=== PATIENT | male | born 1965 | race African-American/Black ===

== ENCOUNTER 2017-04-17 20:45 | Inpatient (IN) | payer OTHER ==
[~2017-04-17] VITALS: Ht 185.4 cm; Wt 97.1 kg
[~2017-04-17 20:45] MED LIST: AMLO10TA4 PO; AMLO5TAB4 PO; CARV25TA PO; CLON0.1T PO; DIGO0.12 PO; ENAL20TA4 PO; FURO40TA4 PO; HYDR-2868 PO; ISOS20TA2 PO; SIMV10TA3 PO
[2017-04-17] MEDS ORDERED: fentaNYL PF VIAL 100 MCG/2 ML VIAL IV PRN (21:15)
[2017-04-17] MEDS ORDERED: ASPIRIN CHEWABLE 81 MG TABLET. PO ONE ×2 (21:30→23:00)
[2017-04-17 21:38] LABS: BASO % 1 % (0-3); EOS % 2 % (0-3); HEMATOCRIT 44.2 % (39.0-53.0); HEMOGLOBIN 14.7 g/dL (13.0-17.5); LYMPH # 1.3 x10^3/uL (1.0-4.8); LYMPH % 36 % (24-48); MEAN CORPUSCULAR HEMOGLOBIN 32 pg (25-35); MEAN CORPUSCULAR HGB CONC 33 g/dL (31-37); MEAN CORPUSCULAR VOLUME 96 fL (79-100); MONO % 12 % (0-9); NEUT % 49 % (31-73); PLATELET COUNT 155 x10^3/uL (140-400); RED BLOOD COUNT 4.59 x10^6/uL (4.30-5.70); RED CELL DISTRIBUTION WIDTH 16.5 % (11.5-14.5); WHITE BLOOD COUNT 3.7 x10^3/uL (4.0-11.0)
[2017-04-17 21:39] LABS: BARBITURATES NEG (NEG); BENZODIAZEPINES NEG (NEG); CANNABINOIDS NEG (NEG); COCAINE NEG (NEG); METHADONE NEG (NEG); OPIATES NEG (NEG); PHENCYCLIDINE NEG (NEG)
[2017-04-17 21:49] LABS: CALCIUM 8.3 mg/dL (8.5-10.1); CREATININE 2.4 mg/dL (0.7-1.3); GFR 34.6; POTASSIUM 3.1 mmol/L (3.5-5.1)
[2017-04-17 21:55] LABS: ALBUMIN 3.6 g/dL (3.4-5.0); DIRECT BILIRUBIN 0.1 mg/dL (0.0-0.2); TOTAL BILIRUBIN 0.4 mg/dL (0.2-1.0); TOTAL PROTEIN 7.4 g/dL (6.4-8.2)
[2017-04-17] MEDS ORDERED: ANTI-COAG MONITOR BY PHARMACY. MC PRN (22:15)
[2017-04-17] MEDS ORDERED: HEPARIN for IV BOLUS 10,000 UNIT/10 ML VIAL. IV PRN (22:15)
[2017-04-17] MEDS ORDERED: HEPARIN 25,000UTS/500ML PREMIX 500 ML IV PRN (22:15)
[2017-04-17] MEDS ORDERED: HEPARIN for IV BOLUS 10,000 UNIT/10 ML VIAL. IV ONE (22:30)
[2017-04-17 22:35] LABS: PROTHROMBIN TIME PATIENT 12.8 SEC (11.7-14.0)
[2017-04-17] MEDS: NITROGLYCERIN SUBLINGUAL 0.4 MG BOTTLE OF 25. SL PRN ×2 (22:39→22:50)
[2017-04-17] MEDS ORDERED: MORPHINE SULFATE 4 MG/ML DISP.SYRIN. IV PRN (22:45)
[2017-04-17] MEDS ORDERED: ONDANSETRON PF 4 MG/2 ML VIAL. IV PRN (22:45)
[2017-04-17] MEDS ORDERED: ACETAMINOPHEN 325 MG TABLET. PO PRN (22:45)
[2017-04-17] MEDS: IV NORMAL SALINE 1000ML BAG 1,000 ML IV SCH (22:47)
--- NOTE | 2017-04-17 22:58 | PHYS DOC ---
Past Medical History Past Medical History: CAD, CHF, High Cholesterol, Hypertension Additional Past Medical Histor: gout Past Surgical History: Other Additional Past Surgical Histo: "neck gland" Alcohol Use: Heavy Drug Use: None Adult General Chief Complaint Chief Complaint: CHEST PAIN HPI HPI Patient is a 51 year old gentleman with a history significant for hypertension , elevated troponin, elevated BNP, alcohol abuse, presents here today complaining of chest discomfort. Patient reports that his C was out and he was feeling hot so he drank several beers today to keep cool. Patient reports started developing chest pain and midepigastric discomfort. Patient has any diabetes liver longer kidney problems. Patient denies any surgeries. Patient denies any tobacco or drugs. Patient has any fevers shakes chills cough cold Raynaud's. Patient has any radiating pain. Patient says the pain of the discomfort in his chest. Patient reports it is not exertional. It occurred while he was resting. Patient has any melena or blood per rectum. Patient has any hematochezia. Patient denies any coffee-ground emesis. Patient reports that he was diagnosed with a heart attack in the past. Patient reports that he declined a cardiac catheterization at that time. Patient reports that the in medical therapy. Patient's ER workup was significant for an elevated troponin, elevated BNP, and an elevated lipase.. Patient's chest x-ray revealed a normal heart with no infiltrates or effusions. Interpreted by Dianna. EKG #1 revealed normal sinus rhythm with nonspecific ST-T wave abnormalities no evidence of STEMI. Comparing it to his EKG from April 30, 2016 there isn't any significant changes. EKG #2 revealed normal sinus rhythm with nonspecific ST-T wave abnormalities no evidence of STEMI. No significant changes from EKG from earlier today. Interpreted by Dianna. Patient's physical exam was significant for regular rate and rhythm. Lungs were clear without any wheezing rales or rhonchi. Abdomen was soft nontender no rebound or guarding. Mild midepigastric tenderness to palpation. Assessment and plan 1. Chest pain. Patient with what appears to be a non-STEMI. Patient hasn't had an elevated troponin in the past. His last visit to the hospital. It's unclear whether or not this is chronic her with her not this is new for him as it was just 1 visit. Patient's EKG does not show any STEMI. Patient be started on heparin protocol, patient be on aspirin, nitro paste, will be admitted to telemetry and will have Betzy assist with evaluation. Patient have serial troponins. Patient is currently chest pain-free. 2. Elevated troponin see above 3. Elevated BNP. Patient's clinically and hemodynamically stable. There is no evidence currently of acute CHF. Patient does not present with signs or symptoms consistent with pulmonary edema. Patient be monitored and evaluated by cardiology. 4. Elevated lipase. Patient is a heavy alcohol user. Patient's clinically hemodynamically stable. Patient lipase is elevated. Patient will be admitted to the hospital. Patient is tolerating by mouth's currently. I do not see a need to make him nothing by mouth at this time. Patient be managed with IV fluids and antiemetics as needed. Critical care time of 35 minutes were utilizing the management and treatment of this patient's abnormal labs. Patient has been diagnosed with non-STEMI, pancreatitis, evaluated for CHF. Alcohol intoxication. Review of Systems Review of Systems Constitutional: Denies fever or chills [] Eyes: Denies change in visual acuity, redness, or eye pain [] HENT: Denies nasal congestion or sore throat [] All other review systems are negative except as documented in the history of present illness portion. Current Medications Current Medications Current Medications Medications (Trade) Dose Ordered Sig/[facility] Start Time Stop Time Status Last Admin Dose Admin Aspirin (Children'S Aspirin) 324 mg 1X ONCE 04/17/17 23:00 04/17/17 23:01 Cancel Fentanyl Citrate (Fentanyl 2ml Vial) 25 mcg PRN Q15MIN PRN 04/17/17 21:15 04/18/17 21:14 04/17/17 22:38 25 MCG Heparin Sodium (Porcine) (Heparin Sodium) 2,700 unit PRN Q6HRS PRN 04/17/17 22:15 Heparin Sodium/ Dextrose 500 ml @ 0 mls/hr CONT PRN 04/17/17 22:15 04/17/17 22:32 20 MLS/HR Info (Anti-Coagulation Monitoring By Pharmacy) 1 each PRN DAILY PRN 04/17/17 22:15 Nitroglycerin (Nitro-Bid Oint) 1 inch 1X ONCE 04/17/17 23:00 04/17/17 23:01 Nitroglycerin (Nitrostat) 0.4 mg PRN Q5MIN PRN 04/17/17 21:15 04/18/17 21:14 04/17/17 22:39 0.4 MG Sodium Chloride 1,000 ml @ 1,000 mls/hr 1X ONCE 04/17/17 23:00 04/17/17 23:59 Allergies Allergies Allergies Coded Allergies Type Severity Reaction Last Updated Verified SILVER Inhibitors Allergy Severe Anaphylaxis 04/30/16 Yes lisinopril Allergy Severe Swelling 04/29/16 Yes Physical Exam Physical Exam Constitutional: Denies fever or chills [] Eyes: Denies change in visual acuity, redness, or eye pain [] HENT: Denies nasal congestion or sore throat [] All other review systems are negative except as documented in the history of present illness portion. Constitutional: Well developed, well nourished, no acute distress, non-toxic appearance. [] HENT: Normocephalic, atraumatic, bilateral external ears normal, oropharynx moist, no oral exudates, nose normal. [] Eyes: PERRLA, EOMI, conjunctiva normal, no discharge. [] Neck: Normal range of motion, no tenderness, supple, no stridor. [] Cardiovascular:Heart rate regular rhythm, Lungs & Thorax: Bilateral breath sounds clear to auscultation [] Abdomen: Bowel sounds normal, soft, no tenderness, no masses, no pulsatile masses. [] Skin: Warm, dry, no erythema, no rash. [] Back: No tenderness, no CVA tenderness. [] Extremities: No tenderness, no cyanosis, no clubbing, ROM intact, no edema. [] Neurologic: Alert and oriented X 3, normal motor function, normal sensory function, no focal deficits noted. [] Psychologic: Affect normal, judgement normal, mood normal. [] Current Patient Data Vital Signs Vital Signs Date Time Temp Pulse Resp B/P (MAP) Pulse Ox O2 Delivery O2 Flow Rate FiO2 04/17/17 22:39 98 189/114 04/17/17 20:45 98.2 22 98 Room Air 98.2 Lab Values Laboratory Tests Test 04/17/17 20:50 04/17/17 21:15 White Blood Count 3.7 x10^3/uL (4.0-11.0) L Red Blood Count 4.59 x10^6/uL (4.30-5.70) Hemoglobin 14.7 g/dL (13.0-17.5) Hematocrit 44.2 % (39.0-53.0) Mean Corpuscular Volume 96 fL (79-100) Mean Corpuscular Hemoglobin 32 pg (25-35) Mean Corpuscular Hemoglobin Concent 33 g/dL (31-37) Red Cell Distribution Width 16.5 % (11.5-14.5) H Platelet Count 155 x10^3/uL (140-400) Neutrophils (%) (Auto) 49 % (31-73) Lymphocytes (%) (Auto) 36 % (24-48) Monocytes (%) (Auto) 12 % (0-9) H Eosinophils (%) (Auto) 2 % (0-3) Basophils (%) (Auto) 1 % (0-3) Neutrophils # (Auto) 1.8 x10^3uL (1.8-7.7) Lymphocytes # (Auto) 1.3 x10^3/uL (1.0-4.8) Monocytes # (Auto) 0.5 x10^3/uL (0.0-1.1) Eosinophils # (Auto) 0.1 x10^3/uL (0.0-0.7) Basophils # (Auto) 0.0 x10^3/uL (0.0-0.2) Prothrombin Time 12.8 SEC (11.7-14.0) Prothrombin Time INR 1.0 (0.8-1.1) PTT 30 SEC (24-38) Sodium Level 145 mmol/L (136-145) Potassium Level 3.1 mmol/L (3.5-5.1) L Chloride Level 102 mmol/L (98-107) Carbon Dioxide Level 30 mmol/L (21-32) Anion Gap 13 (6-14) Blood Urea Nitrogen 24 mg/dL (8-26) Creatinine 2.4 mg/dL (0.7-1.3) H Estimated GFR (Cockcroft-Gault) 34.6 Glucose Level 138 mg/dL (70-99) H Calcium Level 8.3 mg/dL (8.5-10.1) L Total Bilirubin 0.4 mg/dL (0.2-1.0) Direct Bilirubin 0.1 mg/dL (0.0-0.2) Aspartate Amino Transferase (AST) 39 U/L (15-37) H Alanine Aminotransferase (ALT) 24 U/L (16-63) Alkaline Phosphatase 65 U/L (46-116) Troponin I Quantitative 0.201 ng/mL (0.000-0.055) LD-Fht-U-Type Natriuretic Peptide 1425 pg/mL (0-124) H Total Protein 7.4 g/dL (6.4-8.2) Albumin 3.6 g/dL (3.4-5.0) Lipase 626 U/L (73-393) H Urine Opiates Screen Neg (NEG) Urine Methadone Screen Neg (NEG) Urine Barbiturates Neg (NEG) Urine Phencyclidine Screen Neg (NEG) Urine Amphetamine/Methamphetamine Neg (NEG) Urine Benzodiazepines Screen Neg (NEG) Urine Cocaine Screen Neg (NEG) Urine Cannabinoids Screen Neg (NEG) Urine Ethyl Alcohol Pos (NEG) Laboratory Tests 04/17/17 20:50 Laboratory Tests 04/17/17 20:50 EKG EKG [] Radiology/Procedures Radiology/Procedures [] Course & Med Decision Making Course & Med Decision Making Pertinent Labs and Imaging studies reviewed. (See chart for details) [] Dragon Disclaimer Dragon Disclaimer This electronic medical record was generated, in whole or in part, using a voice recognition dictation system. Departure Departure Impression: Primary Impression: Chest pain Additional Impressions: Elevated troponin Hypokalemia Non-STEMI (non-ST elevated myocardial infarction) Unstable angina Pancreatitis Heart failure Kidney failure Hypertension Disposition: 09 ADMITTED INPATIENT Admitting Physician: Dennys Smith Condition: STABLE Referrals: UNKNOWN PCP NAME (PCP) Problem Qualifiers ALEKSANDR GILLILAND MD Apr 17, 2017 22:58
[2017-04-17] MEDS ORDERED: NITROGLYCERIN OINT 1 GM PACKET. TP ONE (23:00)
[2017-04-17] MEDS ORDERED: IV NORMAL SALINE 1000ML BAG 1,000 ML IV ONE (23:00)
[2017-04-18] VITALS (7 sets, daily range): BP systolic 117–183; BP diastolic 68–115
[2017-04-18] MEDS: hydrALAZINE 20 MG/ML VIAL. IVP PRN ×2 (00:52→08:03)
[2017-04-18] MEDS ORDERED: DIGO250T PO (02:19)
[2017-04-18] MEDS ORDERED: POTA20TA82 PO (02:19)
--- NOTE | 2017-04-18 03:51 | ACF ---
Admission Forms Criteria MYOCARDIAL INFARCTION Clinical Indications for Admission to Inpatient Care (Place 'X' for any and all applicable criteria): Admission is indicated for 1 or more of the following (1)(2)(3)(4): [X]I. Acute OK [ ]II. Contraindications and/or Inappropriate clinical situations for Observational Care in patients with Myocardial Infarction, when ANY ONE of the following is required: [ ]a) Patient with High risk of cardiac embolism (e.g, patients with previous cardiac embolism, LVEF < 40%, age >75 and patients with prosthetic valve) 18 [ ]b) Patient with Moderate risk including DM patient, CAD and patient aged 65-75 18 [ ]c) Patient with any change in cardiac biomarker especially troponin should be managed as high risk in an inpatient setting 19 [ ]d) Physician judgement irrespective of ECG and other diagnostic findings 20 [ ]III.General contraindications and/or Inappropriate clinical situations for Observational Care in patients with Myocardial Infarction, when ANY ONE of the following is required: [ ]a) Prediction of prolongation of LOS based on ANY ONE of the following may be considered as a contraindication for observational care 2, 3, 4, 5, 6, 7, 8, 9, 10, 11 [ ]i) Age > 65 yrs. [ ]ii) Patient arriving by ambulance [ ]iii) Patient with high acuity [ ]iv) Patient requiring vital sign monitoring [ ]v) Patient on IV medication [ ]b) Systolic blood pressures greater than or equal to 180mmHg 3,12 [ ]c) Patient with altered mental status including delirium and other alteration of consciousness, (3) [ ]d) Patient whose discharge disposition will be to a half-way home or rehabilitation home should not be managed in Emergency Department Observation Unit. CMS rule requires 3 days hospital stay before such placement. 3,13 [ ]e) Patient with failure to thrive due to broad array of etiologies 3 ,16,17 [ ]f) Inability to ambulate 3,14 Extended stay beyond goal length of stay may be needed for (1)(18)(20)(24)(25): [ ]a) Hemodynamic instability, persisting symptoms after intensive medical management, or recurring severe, prolonged symptoms [ ]b) Intravascular procedural complications such as acute vessel closure, stent thrombosis, stent malposition, or vessel dissection (26)(27)(28) [ ]c) Extravascular procedural complications such as retroperitoneal hematoma , pericardial effusion, or cardiac tamponade [ ]d) Entry site complications causing bleeding, hematoma or distal ischemia and requiring ongoing monitoring, surgical repair or surgical thrombectomy. Dangerous arrhythmia [ ]e) Complicated percutaneous coronary intervention (e.g., unsuccessful percutaneous coronary intervention or percutaneous coronary intervention of non- [place] vessel) [ ]f) Urgent or emergent surgery for complications of OK (e.g., ventricular rupture, valvular insufficiency) [ ]g) Surgical revascularization via coronary artery bypass graft [ ]h) Heart failure (e.g., pulmonary edema) [ ]i) Unstable pulmonary comorbidities, including COPD or pneumonia (31) [ ]j) Acute renal failure The original [employer] content created by [employer] [employer] has been revised. The portions of the content which have been revised are identified through the use of italic text or in bold, and [facility] has neither reviewed nor approved the modified material. All other unmodified content is copyright [facility] Please see references footnoted in the original [facility] edition 2016 Admission Criteria Met?: Yes KEMAR SERRANO Apr 18, 2017 03:51
[2017-04-18 05:15] LABS: BASO % 1 % (0-3); EOS % 2 % (0-3); HEMATOCRIT 42.4 % (39.0-53.0); HEMOGLOBIN 13.9 g/dL (13.0-17.5); LYMPH # 0.9 x10^3/uL (1.0-4.8); LYMPH % 22 % (24-48); MEAN CORPUSCULAR HEMOGLOBIN 32 pg (25-35); MEAN CORPUSCULAR HGB CONC 33 g/dL (31-37); MEAN CORPUSCULAR VOLUME 96 fL (79-100); MONO % 14 % (0-9); NEUT % 61 % (31-73); PLATELET COUNT 149 x10^3/uL (140-400); RED CELL DISTRIBUTION WIDTH 16.7 % (11.5-14.5); WHITE BLOOD COUNT 3.9 x10^3/uL (4.0-11.0)
[2017-04-18 06:02] LABS: ALBUMIN 3.4 g/dL (3.4-5.0); ALBUMIN/GLOBULIN RATIO 0.9 (1.0-1.7); CALCIUM 7.7 mg/dL (8.5-10.1); CREATININE 1.7 mg/dL (0.7-1.3); GFR 51.5; TOTAL BILIRUBIN 0.6 mg/dL (0.2-1.0)
[2017-04-18 06:09] LABS: CHOLESTEROL/HDL RATIO 1.9; POTASSIUM 2.8 mmol/L (3.5-5.1)
[2017-04-18] MEDS: IV NORMAL SALINE 1000ML BAG 1,000 ML IV SCH ×3 (06:39→18:00)
--- NOTE | 2017-04-18 06:47 | EKG ---
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
--- NOTE | 2017-04-18 06:48 | EKG ---
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
[2017-04-18] MEDS ORDERED: MAGNESIUM SULFATE 2GM 50 ML IV ONE (07:00)
[2017-04-18] MEDS: POTASSIUM CHLORIDE 10MEQ 100 ML IV SCH ×4 (07:51→13:01)
--- NOTE | 2017-04-18 08:06 | RAD ---
Portable chest, 04/17/2017: History: Chest pain The heart is mildly enlarged. The pulmonary vascularity is normal. No pulmonary infiltrates are seen. There is no evidence of pleural fluid. IMPRESSION: 1. Mild cardiomegaly. 2. No acute abnormality is detected.
--- NOTE | 2017-04-18 09:05 | PDOC2 ---
GI CONSULT Reason For Consult: Pancreatitis HPI: HPI: 51 y/o male admitted through the ER. Not feeling well for about 3 days, his electricity has been out at home. Reports some left-sided chest pain associated w/ SOA. Thinks precipitated by "all the meds" he takes. Had watery stools for a couple days and hasn't been eating much (again due to power being out). Currently some nausea. Denies vomiting, heartburn/reflux/indigestion. Occasionally has epigastric pain but has not had this recently. Denies hematochezia, melena. Denies weight loss. Colonoscopy a couple years ago ( unsure where performed) was reportedly normal, although he was prescribed some suppositories after. No previous EGD. No liver or pancreatic history. Tells me drinks two beers daily. Note HTN and tachycardia. Labs significant for lipase 626 and normal LFTs except for AST 39. BNP and troponin elevated, along w/ Cr. Urine + ethyl alcohol and potassium is low. No abd imaging. Cardiology eval is pending. PMH: PMH: cardiomyopathy, MIs, HTN, gout FH: Family History: Cancer (uncles had cancer, unsure type) Social History: Smoke: <1 pack per day ALCOHOL: other (2 beers daily) Drugs: None ROS: GEN: power has been out, sweats HEENT: Denies blurred vision, sore throat CV: +chest pain RESP: +shortness of air GI: Per HPI : Denies hematuria, dysuria ENDO: Denies weight changes NEURO: Denies confusion, dizziness MSK: Denies weakness, joint pain/swelling SKIN: Denies jaundice, pruritus Vitals: Vitals: Vital Signs Date Time Temp Pulse Resp B/P (MAP) Pulse Ox O2 Delivery O2 Flow Rate FiO2 04/18/17 08:03 103 180/108 04/18/17 08:00 Room Air 04/18/17 07:45 97.9 20 97 97.9 Labs: Labs: Laboratory Tests Test 04/17/17 20:50 04/17/17 21:15 04/18/17 04:35 White Blood Count 3.7 x10^3/uL (4.0-11.0) 3.9 x10^3/uL (4.0-11.0) Red Blood Count 4.59 x10^6/uL (4.30-5.70) 4.40 x10^6/uL (4.30-5.70) Hemoglobin 14.7 g/dL (13.0-17.5) 13.9 g/dL (13.0-17.5) Hematocrit 44.2 % (39.0-53.0) 42.4 % (39.0-53.0) Mean Corpuscular Volume 96 fL (79-100) 96 fL (79-100) Mean Corpuscular Hemoglobin 32 pg (25-35) 32 pg (25-35) Mean Corpuscular Hemoglobin Concent 33 g/dL (31-37) 33 g/dL (31-37) Red Cell Distribution Width 16.5 % (11.5-14.5) 16.7 % (11.5-14.5) Platelet Count 155 x10^3/uL (140-400) 149 x10^3/uL (140-400) Neutrophils (%) (Auto) 49 % (31-73) 61 % (31-73) Lymphocytes (%) (Auto) 36 % (24-48) 22 % (24-48) Monocytes (%) (Auto) 12 % (0-9) 14 % (0-9) Eosinophils (%) (Auto) 2 % (0-3) 2 % (0-3) Basophils (%) (Auto) 1 % (0-3) 1 % (0-3) Neutrophils # (Auto) 1.8 x10^3uL (1.8-7.7) 2.4 x10^3uL (1.8-7.7) Lymphocytes # (Auto) 1.3 x10^3/uL (1.0-4.8) 0.9 x10^3/uL (1.0-4.8) Monocytes # (Auto) 0.5 x10^3/uL (0.0-1.1) 0.6 x10^3/uL (0.0-1.1) Eosinophils # (Auto) 0.1 x10^3/uL (0.0-0.7) 0.1 x10^3/uL (0.0-0.7) Basophils # (Auto) 0.0 x10^3/uL (0.0-0.2) 0.0 x10^3/uL (0.0-0.2) Prothrombin Time 12.8 SEC (11.7-14.0) Prothromb Time International Ratio 1.0 (0.8-1.1) Activated Partial Thromboplast Time 30 SEC (24-38) Sodium Level 145 mmol/L (136-145) 143 mmol/L (136-145) Potassium Level 3.1 mmol/L (3.5-5.1) 2.8 mmol/L (3.5-5.1) Chloride Level 102 mmol/L (98-107) 102 mmol/L (98-107) Carbon Dioxide Level 30 mmol/L (21-32) 25 mmol/L (21-32) Anion Gap 13 (6-14) 16 (6-14) Blood Urea Nitrogen 24 mg/dL (8-26) 21 mg/dL (8-26) Creatinine 2.4 mg/dL (0.7-1.3) 1.7 mg/dL (0.7-1.3) Estimated GFR (Cockcroft-Gault) 34.6 51.5 Glucose Level 138 mg/dL (70-99) 82 mg/dL (70-99) Calcium Level 8.3 mg/dL (8.5-10.1) 7.7 mg/dL (8.5-10.1) Total Bilirubin 0.4 mg/dL (0.2-1.0) 0.6 mg/dL (0.2-1.0) Direct Bilirubin 0.1 mg/dL (0.0-0.2) Aspartate Amino Transf (AST/SGOT) 39 U/L (15-37) 33 U/L (15-37) Alanine Aminotransferase (ALT/SGPT) 24 U/L (16-63) 22 U/L (16-63) Alkaline Phosphatase 65 U/L (46-116) 59 U/L (46-116) Troponin I Quantitative 0.201 ng/mL (0.000-0.055) 0.278 ng/mL (0.000-0.055) BI-Myi-A-Type Natriuretic Peptide 1425 pg/mL (0-124) Total Protein 7.4 g/dL (6.4-8.2) 7.0 g/dL (6.4-8.2) Albumin 3.6 g/dL (3.4-5.0) 3.4 g/dL (3.4-5.0) Lipase 626 U/L (73-393) Urine Opiates Screen Neg (NEG) Urine Methadone Screen Neg (NEG) Urine Barbiturates Neg (NEG) Urine Phencyclidine Screen Neg (NEG) Urine Amphetamine/Methamphetamine Neg (NEG) Urine Benzodiazepines Screen Neg (NEG) Urine Cocaine Screen Neg (NEG) Urine Cannabinoids Screen Neg (NEG) Urine Ethyl Alcohol Pos (NEG) Heparin Anti-Xa Act, Unfractionated 0.19 IU/mL (0.30-0.70) BUN/Creatinine Ratio 12 (6-20) Magnesium Level 1.7 mg/dL (1.8-2.4) Albumin/Globulin Ratio 0.9 (1.0-1.7) Triglycerides Level 52 mg/dL (0-150) Cholesterol Level 214 mg/dL (0-200) LDL Cholesterol, Calculated 92 mg/dL (0-100) VLDL Cholesterol, Calculated 10 mg/dL (0-40) Non-HDL Cholesterol Calculated 102 mg/dL (0-129) HDL Cholesterol 112 mg/dL (40-60) Cholesterol/HDL Ratio 1.9 Thyroid Stimulating Hormone (TSH) 0.596 uIU/mL (0.358-3.74) Allergies: Coded Allergies: SILVER Inhibitors (Verified Allergy, Severe, Anaphylaxis, 04/30/16) lisinopril (Verified Allergy, Severe, Swelling, 04/29/16) oral swelling Medications: Current Medications Medications (Trade) Dose Ordered Sig/Marisol Route PRN Reason Start Time Stop Time Status Last Admin Dose Admin Aspirin (Children'S Aspirin) 324 mg 1X ONCE PO 04/17/17 21:30 04/17/17 21:31 DC 04/17/17 21:21 Nitroglycerin (Nitrostat) 0.4 mg PRN Q5MIN PRN SL CP RATING > 1/10 04/17/17 21:15 04/18/17 21:14 04/17/17 22:50 Fentanyl Citrate (Fentanyl 2ml Vial) 25 mcg PRN Q15MIN PRN IV PAIN GREATER THAN 3/10 04/17/17 21:15 04/18/17 21:14 04/17/17 22:38 Heparin Sodium (Porcine) (Heparin Sodium) 4,000 unit 1X ONCE IV 04/17/17 22:30 04/17/17 22:31 DC 04/17/17 22:28 Heparin Sodium/ Dextrose 500 ml @ 0 mls/hr CONT PRN IV SEE I/O RECORD 04/17/17 22:15 04/17/17 22:32 Heparin Sodium (Porcine) (Heparin Sodium) 2,700 unit PRN Q6HRS PRN IV FOR UFH LEVEL LESS THAN 0.2 04/17/17 22:15 04/18/17 06:25 Info (Anti-Coagulation Monitoring By Pharmacy) 1 each PRN DAILY PRN MC SEE COMMENTS 04/17/17 22:15 04/18/17 00:45 Nitroglycerin (Nitro-Bid Oint) 1 inch 1X ONCE TP 04/17/17 23:00 04/17/17 23:01 DC 04/17/17 23:02 Morphine Sulfate 4 mg PRN Q2HR PRN IV SEVERE PAIN 04/17/17 22:45 04/18/17 22:44 04/18/17 01:02 Sodium Chloride 1,000 ml @ 125 mls/hr Q8H IV 04/17/17 22:39 04/18/17 22:38 04/17/17 22:47 Hydralazine HCl (Apresoline) 10 mg PRN Q4HRS PRN IVP ELEVATED BP, SEE COMMENTS 04/18/17 00:45 04/18/17 08:03 Magnesium Sulfate/ Dextrose 50 ml @ 25 mls/hr 1X ONCE IV 04/18/17 07:00 04/18/17 08:59 04/18/17 07:41 Potassium Chloride 100 ml @ 100 mls/hr Q1H IV 04/18/17 07:00 04/18/17 10:59 04/18/17 07:51 Imaging: Imaging: CXR 04/17/17 IMPRESSION: 1. Mild cardiomegaly. 2. No acute abnormality is detected. PE: GEN: NAD HEENT: Atraumatic, PERRL LUNGS: decreased anteriorly HEART: tachycardic ABD: NABS, S/ND/NT EXTREMITY: No edema SKIN: No rashes, no jaundice NEURO/PSYCH: A & O 3 A/P: A/P: Left-sided chest pain, SOA -HTN, tachycardia -elevated troponin and BNP, h/o cardiomyopathy Hypokalemia, hypomagnesemia, elevated Cr -per primary Mildly elevated lipase -no abd imaging -denies abd pain ?alcohol abuse -AST mildly elevated, urine +ethyl alcohol Decreased appetite, diarrhea -not eating much x 3 days, in part due to lack of electricity at home -watery stools CRC screen -colonoscopy a couple years ago, doesn't recall significant findings -- Symptoms not typical of pancreatitis, although suspect he drinks more than he says he does. Proceed w/ cardiology eval. Abd imaging (CT/US) would be helpful at some point, will review w/ Dr. Floyd. KARUNA SEXTON Apr 18, 2017 09:05
[2017-04-18] MEDS: MULTIVIT INFUSN,ADULT 4,VIT K 10 ML, FOLIC ACID 1 MG, THIAMINE 100 MG in IV DEXTROSE 5 ... IV SCH (09:48)
[2017-04-18] MEDS: NITROGLYCERIN SUBLINGUAL 0.4 MG BOTTLE OF 25. SL PRN (09:51)
[2017-04-18] MEDS ORDERED: ONDANSETRON PF 4 MG/2 ML VIAL. IV PRN (10:00)
[2017-04-18] MEDS ORDERED: DOCUSATE SODIUM 100 MG CAPSULE. PO PRN (10:00)
[2017-04-18] MEDS ORDERED: ACETAMINOPHEN 325 MG TABLET. PO PRN (10:00)
[2017-04-18] MEDS ORDERED: hydrALAZINE 20 MG/ML VIAL. IVP PRN (10:00)
[2017-04-18] MEDS: POTASSIUM CHLORIDE 20 MEQ TABLET.ER. PO SCH (11:36)
[2017-04-18] MEDS: hydrALAZINE 25 MG TABLET PO SCH ×3 (11:46→20:07)
[2017-04-18] MEDS: FUROSEMIDE 40 MG TABLET. PO SCH (11:47)
[2017-04-18] MEDS: amLODIPine BESYLATE 10 MG TABLET PO SCH (11:47)
[2017-04-18] MEDS: CARVEDILOL 12.5 MG TABLET. PO SCH ×2 (11:47→18:11)
--- NOTE | 2017-04-18 11:56 | PDOC2 ---
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 Reports of nonradiating left chest close to mid axillary line describing it ass sharp shooting. He does have some nausea at times but no complains of any palpitations. He has been drinking beer daily but denies heavy ingestion. Continue tobacco and no recreational drug use. He failed to follow up in our office from his last admission. He also has been feeling weak and sometimes SOA with exertion but none significant from his baseline. He works at a [employer] without much heavy lifting and has been tolerating this but stopped and wont tell me reason why he stopped working. Verbalized compliance with his medications. Presently denies any discomfort. He is known for NICM with baseline NYHA 2. PAST MEDICAL HISTORY Cardiovascular: CHF (NICM), HTN, Hyperlipidemia, Valve insufficiency Pulmonary: COPD CENTRAL NERVOUS SYSTEM: Other (No pertinent history) GI: GERD Heme/Onc: No pertinent hx Hepatobiliary: No pertinent hx Psych: No pertinent hx, Other (alcoholism) Musculoskeletal: Osteoarthritis Rheumatologic: Gout Infectious disease: No pertinent hx ENT: No pertinent hx Renal/: Chronic renal insuff (CKD 3), Other (hypokalemia) Endocrine: No pertinent hx Dermatology: No pertinent hx PAST SURGICAL HISTORY Past Surgical History: No pertinent history FAMILY HISTORY Family History noncontributory to CV SOCIAL HISTORY Smoke: <1 pack per day ALCOHOL: heavy Drugs: None Lives: with Family CURRENT MEDICATIONS CURRENT MEDICATIONS Current Medications Medications (Trade) Dose Ordered Sig/Marisol Route PRN Reason Start Time Stop Time Status Last Admin Dose Admin Aspirin (Children'S Aspirin) 324 mg 1X ONCE PO 04/17/17 21:30 04/17/17 21:31 DC 04/17/17 21:21 Nitroglycerin (Nitrostat) 0.4 mg PRN Q5MIN PRN SL CP RATING > 1/10 04/17/17 21:15 04/18/17 21:14 04/18/17 09:51 Fentanyl Citrate (Fentanyl 2ml Vial) 25 mcg PRN Q15MIN PRN IV PAIN GREATER THAN 3/10 04/17/17 21:15 04/18/17 21:14 04/17/17 22:38 Heparin Sodium (Porcine) (Heparin Sodium) 4,000 unit 1X ONCE IV 04/17/17 22:30 04/17/17 22:31 DC 04/17/17 22:28 Heparin Sodium/ Dextrose 500 ml @ 0 mls/hr CONT PRN IV SEE I/O RECORD 04/17/17 22:15 04/17/17 22:32 Heparin Sodium (Porcine) (Heparin Sodium) 2,700 unit PRN Q6HRS PRN IV FOR UFH LEVEL LESS THAN 0.2 04/17/17 22:15 04/18/17 06:25 Info (Anti-Coagulation Monitoring By Pharmacy) 1 each PRN DAILY PRN MC SEE COMMENTS 04/17/17 22:15 04/18/17 00:45 Nitroglycerin (Nitro-Bid Oint) 1 inch 1X ONCE TP 04/17/17 23:00 04/17/17 23:01 DC 04/17/17 23:02 Ondansetron HCl (Zofran) 4 mg PRN Q8HRS PRN IV NAUSEA/VOMITING 04/17/17 22:45 04/18/17 09:57 DC 04/18/17 09:23 Morphine Sulfate 4 mg PRN Q2HR PRN IV SEVERE PAIN 04/17/17 22:45 04/18/17 22:44 04/18/17 01:02 Sodium Chloride 1,000 ml @ 125 mls/hr Q8H IV 04/17/17 22:39 04/18/17 22:38 04/17/17 22:47 Hydralazine HCl (Apresoline) 10 mg PRN Q4HRS PRN IVP ELEVATED BP, SEE COMMENTS 04/18/17 00:45 04/18/17 08:03 Multivitamins 10 ml/Folic Acid 1 mg/Thiamine HCl 100 mg/Dextrose/ Sodium Chloride 1,011.1 ml @ 100 mls/ hr DAILY IV 04/18/17 09:00 04/22/17 19:07 04/18/17 09:48 Magnesium Sulfate/ Dextrose 50 ml @ 25 mls/hr 1X ONCE IV 04/18/17 07:00 04/18/17 08:59 DC 04/18/17 07:41 Potassium Chloride 100 ml @ 100 mls/hr Q1H IV 04/18/17 07:00 04/18/17 10:59 DC 04/18/17 09:23 ALLERGIES ALLERGIES: Coded Allergies: SILVER Inhibitors (Verified Allergy, Severe, Anaphylaxis, 04/30/16) lisinopril (Verified Allergy, Severe, Swelling, 04/29/16) oral swelling ROS Review of System 14 point ROS evaluated with pertinent positives noted per HPI PHYSICAL EXAM General: Alert, Oriented X3, Cooperative, No acute distress HEENT: Atraumatic, Mucous membr. moist/pink Lungs: Clear to auscultation, Normal air movement Heart: Regular rate (SR/ST), Normal S1, Normal S2, Other (S4; 3/6 systolic murmur diffuse) Extremities: No cyanosis, No edema Skin: No breakdown, No significant lesion Neuro: Normal speech, Sensation intact Psych/Mental Status: Mental status NL, Mood NL MUSCULOSKELETAL: Osteoarthritic changes both hands VITALS VITALS Vital Signs Date Time Temp Pulse Resp B/P (MAP) Pulse Ox O2 Delivery O2 Flow Rate FiO2 04/18/17 09:51 103 167/88 04/18/17 08:00 Room Air 04/18/17 07:45 97.9 20 97 97.9 LABS Lab: Laboratory Tests Test 04/17/17 20:50 04/17/17 21:15 04/18/17 04:35 White Blood Count 3.7 x10^3/uL (4.0-11.0) 3.9 x10^3/uL (4.0-11.0) Red Blood Count 4.59 x10^6/uL (4.30-5.70) 4.40 x10^6/uL (4.30-5.70) Hemoglobin 14.7 g/dL (13.0-17.5) 13.9 g/dL (13.0-17.5) Hematocrit 44.2 % (39.0-53.0) 42.4 % (39.0-53.0) Mean Corpuscular Volume 96 fL (79-100) 96 fL (79-100) Mean Corpuscular Hemoglobin 32 pg (25-35) 32 pg (25-35) Mean Corpuscular Hemoglobin Concent 33 g/dL (31-37) 33 g/dL (31-37) Red Cell Distribution Width 16.5 % (11.5-14.5) 16.7 % (11.5-14.5) Platelet Count 155 x10^3/uL (140-400) 149 x10^3/uL (140-400) Neutrophils (%) (Auto) 49 % (31-73) 61 % (31-73) Lymphocytes (%) (Auto) 36 % (24-48) 22 % (24-48) Monocytes (%) (Auto) 12 % (0-9) 14 % (0-9) Eosinophils (%) (Auto) 2 % (0-3) 2 % (0-3) Basophils (%) (Auto) 1 % (0-3) 1 % (0-3) Neutrophils # (Auto) 1.8 x10^3uL (1.8-7.7) 2.4 x10^3uL (1.8-7.7) Lymphocytes # (Auto) 1.3 x10^3/uL (1.0-4.8) 0.9 x10^3/uL (1.0-4.8) Monocytes # (Auto) 0.5 x10^3/uL (0.0-1.1) 0.6 x10^3/uL (0.0-1.1) Eosinophils # (Auto) 0.1 x10^3/uL (0.0-0.7) 0.1 x10^3/uL (0.0-0.7) Basophils # (Auto) 0.0 x10^3/uL (0.0-0.2) 0.0 x10^3/uL (0.0-0.2) Prothrombin Time 12.8 SEC (11.7-14.0) Prothromb Time International Ratio 1.0 (0.8-1.1) Activated Partial Thromboplast Time 30 SEC (24-38) Sodium Level 145 mmol/L (136-145) 143 mmol/L (136-145) Potassium Level 3.1 mmol/L (3.5-5.1) 2.8 mmol/L (3.5-5.1) Chloride Level 102 mmol/L (98-107) 102 mmol/L (98-107) Carbon Dioxide Level 30 mmol/L (21-32) 25 mmol/L (21-32) Anion Gap 13 (6-14) 16 (6-14) Blood Urea Nitrogen 24 mg/dL (8-26) 21 mg/dL (8-26) Creatinine 2.4 mg/dL (0.7-1.3) 1.7 mg/dL (0.7-1.3) Estimated GFR (Cockcroft-Gault) 34.6 51.5 Glucose Level 138 mg/dL (70-99) 82 mg/dL (70-99) Calcium Level 8.3 mg/dL (8.5-10.1) 7.7 mg/dL (8.5-10.1) Total Bilirubin 0.4 mg/dL (0.2-1.0) 0.6 mg/dL (0.2-1.0) Direct Bilirubin 0.1 mg/dL (0.0-0.2) Aspartate Amino Transf (AST/SGOT) 39 U/L (15-37) 33 U/L (15-37) Alanine Aminotransferase (ALT/SGPT) 24 U/L (16-63) 22 U/L (16-63) Alkaline Phosphatase 65 U/L (46-116) 59 U/L (46-116) Troponin I Quantitative 0.201 ng/mL (0.000-0.055) 0.278 ng/mL (0.000-0.055) GN-Gny-A-Type Natriuretic Peptide 1425 pg/mL (0-124) Total Protein 7.4 g/dL (6.4-8.2) 7.0 g/dL (6.4-8.2) Albumin 3.6 g/dL (3.4-5.0) 3.4 g/dL (3.4-5.0) Lipase 626 U/L (73-393) Urine Opiates Screen Neg (NEG) Urine Methadone Screen Neg (NEG) Urine Barbiturates Neg (NEG) Urine Phencyclidine Screen Neg (NEG) Urine Amphetamine/Methamphetamine Neg (NEG) Urine Benzodiazepines Screen Neg (NEG) Urine Cocaine Screen Neg (NEG) Urine Cannabinoids Screen Neg (NEG) Urine Ethyl Alcohol Pos (NEG) Heparin Anti-Xa Act, Unfractionated 0.19 IU/mL (0.30-0.70) BUN/Creatinine Ratio 12 (6-20) Magnesium Level 1.7 mg/dL (1.8-2.4) Albumin/Globulin Ratio 0.9 (1.0-1.7) Triglycerides Level 52 mg/dL (0-150) Cholesterol Level 214 mg/dL (0-200) LDL Cholesterol, Calculated 92 mg/dL (0-100) VLDL Cholesterol, Calculated 10 mg/dL (0-40) Non-HDL Cholesterol Calculated 102 mg/dL (0-129) HDL Cholesterol 112 mg/dL (40-60) Cholesterol/HDL Ratio 1.9 Thyroid Stimulating Hormone (TSH) 0.596 uIU/mL (0.358-3.74) ECHOCARDIOGRAM ECHOCARDIOGRAM <Conclusion> Left ventricle systolic function is severely impaired. The Ejection Fraction is 25%. There is severe global hypokinesis of the left ventricle. The lateral and inferolateral hall are severely hypokinetic to akinetic. Doppler and Color Flow revealed moderate aortic regurgitation. Doppler and Color Flow revealed moderate mitral regurgitation. Doppler and Color Flow revealed moderate tricuspid regurgitation. There is moderate pulmonary hypertension. The PA pressure was estimated at 55 mmHg. Doppler and Color Flow revealed mild pulmonic valvular regurgitation. DATE: 05/01/16 1140 STRESS TEST STRESS TEST Conclusion 1. No evidence of stress induced EKG changes (baseline high lateral wall q waves and diffuse TWI) 2. No significant reversible ischemia noted but appearance of perfusion study suggestive of non-ischemic cardiomyopathy 3. Severe LV dysfunction. EF 31% 4. Moderate to high risk study given LV dysfunction. DATE: 05/01/16 1145 ASSESSMENT/PLAN ASSESSMENT/PLAN 1. Atypical CP: currently CP free. Suspect GI 2. Elevated troponin: Underlying CKD. Peaked at 0.2 within his baseline from last admission with recent MPI no reversible defect. EKG SR no changes by comparison. 3. Continued Alcoholism: elevated lipase 4. Tobaccoism 5. NICM: last EF 25% unable to obtain lifevest the last time due to lack of health insurance. Compensated. NYHA 2 6. Noncompliance 7. HTN: controlled 8. HLP: controlled 9. JOAN on CKD3: Low K and Mg 10. Valvular insufficiency Recommendations 1. TTE today. Further recommendations after TTE results. 2. Continue with secondary prevention. Allergic to ACEi. 3. DC heparin. Lovenox x1. 4. Await GI workup 5. Encourage appointment compliance 6. Lifestyle modification. 7. Maintain K and Mg close to 4.0 and 2.0 respectively. Problems: KATRAPATI,JENARO S MD 04/18/17 2158: CARDIAC CONSULT ALLERGIES ALLERGIES: Coded Allergies: SILVER Inhibitors (Verified Allergy, Severe, Anaphylaxis, 04/30/16) lisinopril (Verified Allergy, Severe, Swelling, 04/29/16) oral swelling ASSESSMENT/PLAN ASSESSMENT/PLAN Pt. seen and examined. AGree with above PATIENT SERVICE SPECIALIST note. 51 y.o man with atypical chest pain, 3rd admission now with elevated troponin, joan and multiple CV risk factors. Normal cardiac exam. Etiology of troponin most likely HTN but given risk factors, will rule out CAD DIscussed with patient and , agrees to proceed with cath. Will follow. Problems: ZARA MUJICA APRN Apr 18, 2017 11:56 JENARO EUCEDA MD Apr 18, 2017 21:58
[2017-04-18] MEDS: ISOSORBIDE MONONITRATE 20 MG TABLET PO SCH (13:02)
--- NOTE | 2017-04-18 13:10 | PDOC1 ---
History and Physical Date of Admission Date of Admission 04/17/17 Identification/Chief Complaint Chief Complaint chest pain Problems: Source Source: Chart review, Patient History of Present Illness History of Present Illness 51yo M, heavy drinker, known non ischemia cardiomyopathy with EF 25% no ICD, came for chest pain x1d. He was here 04/2016 for chest pain, was found CHF, no Cath done. He said he felt left side chest pain yesterday when walking, with nausea, no vomiting, mild sob, no diaphoresis, pain feels like sharp, radiating to left arm , 9/10, also + tenderness. denies fever, chills, abd pain. + cough with smoking. he is not compliant with meds. drinks 2 beers daily. in ER ,was found troponin 0.2, lipase 600, on heparin drip overnight, now pain is 7/10. Past Medical History Cardiovascular: CHF (NICM), HTN, Hyperlipidemia, Valve insufficiency Pulmonary: COPD CENTRAL NERVOUS SYSTEM: Other (No pertinent history) GI: GERD Heme/Onc: No pertinent hx Hepatobiliary: No pertinent hx Psych: No pertinent hx, Other (alcoholism) Rheumatologic: Gout Infectious disease: No pertinent hx ENT: No pertinent hx Renal/: Chronic renal insuff (CKD 3), Other (hypokalemia) Endocrine: No pertinent hx Dermatology: No pertinent hx Past Surgical History Past Surgical History: No pertinent history Family History Family History: Heart Disease Social History Smoke: <1 pack per day ALCOHOL: heavy Drugs: None Current Problem List Problem List Problems Medical Problems: (1) Chest pain Status: Acute (2) Heart failure Status: Acute (3) Hypertension Status: Acute (4) Hypokalemia Status: Acute (5) Kidney failure Status: Acute Current Medications Current Medications Current Medications Medications (Trade) Dose Ordered Sig/Marisol Start Time Stop Time Status Last Admin Dose Admin Acetaminophen (Tylenol) 650 mg PRN Q6HRS PRN 04/18/17 10:00 Amlodipine Besylate (Norvasc) 10 mg DAILY 04/18/17 11:00 04/18/17 11:47 10 MG Aspirin (Children'S Aspirin) 324 mg 1X ONCE 04/17/17 23:00 04/17/17 23:01 Cancel Aspirin (Ecotrin) 81 mg [id number] 04/19/17 08:00 Carvedilol (Coreg) 25 mg BIDWMEALS 04/18/17 11:00 04/18/17 11:47 25 MG Docusate Sodium (Colace) 100 mg PRN DAILY PRN 04/18/17 10:00 Enoxaparin Sodium (Lovenox 100mg Syringe) 90 mg 1X ONCE 04/18/17 12:15 04/18/17 12:16 DC Fentanyl Citrate (Fentanyl 2ml Vial) 25 mcg PRN Q15MIN PRN 04/17/17 21:15 04/18/17 21:14 04/17/17 22:38 25 MCG Furosemide (Lasix) 40 mg DAILY 04/18/17 11:00 04/18/17 11:47 40 MG Heparin Sodium (Porcine) (Heparin Sodium) 2,700 unit PRN Q6HRS PRN 04/17/17 22:15 04/18/17 06:25 2,700 UNIT Heparin Sodium/ Dextrose 500 ml @ 0 mls/hr CONT PRN 04/17/17 22:15 04/18/17 11:58 DC 04/17/17 22:32 20 MLS/HR Hydralazine HCl (Apresoline) 10 mg PRN Q4HRS PRN 04/18/17 10:00 Cancel Info (Anti-Coagulation Monitoring By Pharmacy) 1 each PRN DAILY PRN 04/17/17 22:15 04/18/17 00:45 1 EACH Isosorbide Mononitrate (Ismo) 40 mg DAILY 04/18/17 10:30 Magnesium Sulfate/ Dextrose 50 ml @ 25 mls/hr 1X ONCE 04/18/17 07:00 04/18/17 08:59 DC 04/18/17 07:41 25 MLS/HR Morphine Sulfate 2 mg PRN Q2HR PRN 04/18/17 10:00 Multivitamins 10 ml/Folic Acid 1 mg/Thiamine HCl 100 mg/Dextrose/ Sodium Chloride 1,011.1 ml @ 100 mls/ hr DAILY 04/18/17 09:00 04/22/17 19:07 04/18/17 09:48 100 MLS/HR Nitroglycerin (Nitro-Bid Oint) 1 inch 1X ONCE 04/17/17 23:00 04/17/17 23:01 DC 04/17/17 23:02 1 INCH Nitroglycerin (Nitrostat) 0.4 mg PRN Q5MIN PRN 04/17/17 21:15 04/18/17 21:14 04/18/17 09:51 0.4 MG Ondansetron HCl (Zofran) 4 mg PRN Q6HRS PRN 04/18/17 10:00 Potassium Chloride (Klor-Con) 20 meq DAILYWBKFT 04/18/17 12:00 Simvastatin (Zocor) 10 mg QHS 04/18/17 21:00 Sodium Chloride 1,000 ml @ 125 mls/hr Q8H 04/17/17 22:39 04/18/17 22:38 04/17/17 22:47 125 MLS/HR Tramadol HCl (Ultram) 50 mg PRN Q6HRS PRN 04/18/17 10:00 Allergies Allergies Allergies Coded Allergies Type Severity Reaction Last Updated Verified SILVER Inhibitors Allergy Severe Anaphylaxis 04/30/16 Yes lisinopril Allergy Severe Swelling 04/29/16 Yes ROS Review of System CONSTITUTIONAL: No fever or chills EYES: No recent changes SKIN: No rash or itching CARDIOVASCULAR: No chest pain, syncope, palpitations, or edema RESPIRATORY: No SOB or cough GASTROINTESTINAL: No nausea, vomiting or abdominal pain NEUROLOGICAL: No headaches or weakness ENDOCRINE: No cold or heat intolerance GENITOURINARY: No urgency or frequency of urination MUSCULOSKELETAL: No back pain or joint pain LYMPHATICS: No enlarged lymph nodes PSYCHIATRIC: No anxiety or depression Physical Exam Physical Exam GEN.: No apparent distress. Alert and oriented. HEENT: Head is normocephalic, atraumatic NECK: Supple. left chest wall tenderness. LUNGS: Clear to auscultation. HEART: RRR, S1, S2 present. Peripheral pulses intact ABDOMEN: Soft, nontender. Positive bowel sounds. EXTREMITIES: Without any cyanosis. NEUROLOGIC: Normal speech, normal tone PSYCHIATRIC: Normal affect, normal mood. SKIN: No ulcerations Vitals Vitals Vital Signs Date Time Temp Pulse Resp B/P (MAP) Pulse Ox O2 Delivery O2 Flow Rate FiO2 04/18/17 11:47 104 176/91 04/18/17 11:00 98.2 20 95 Room Air 98.2 Labs Labs Laboratory Tests Test 04/17/17 20:50 04/17/17 21:15 04/18/17 04:35 04/18/17 10:45 White Blood Count 3.7 x10^3/uL (4.0-11.0) 3.9 x10^3/uL (4.0-11.0) Red Blood Count 4.59 x10^6/uL (4.30-5.70) 4.40 x10^6/uL (4.30-5.70) Hemoglobin 14.7 g/dL (13.0-17.5) 13.9 g/dL (13.0-17.5) Hematocrit 44.2 % (39.0-53.0) 42.4 % (39.0-53.0) Mean Corpuscular Volume 96 fL (79-100) 96 fL (79-100) Mean Corpuscular Hemoglobin 32 pg (25-35) 32 pg (25-35) Mean Corpuscular Hemoglobin Concent 33 g/dL (31-37) 33 g/dL (31-37) Red Cell Distribution Width 16.5 % (11.5-14.5) 16.7 % (11.5-14.5) Platelet Count 155 x10^3/uL (140-400) 149 x10^3/uL (140-400) Neutrophils (%) (Auto) 49 % (31-73) 61 % (31-73) Lymphocytes (%) (Auto) 36 % (24-48) 22 % (24-48) Monocytes (%) (Auto) 12 % (0-9) 14 % (0-9) Eosinophils (%) (Auto) 2 % (0-3) 2 % (0-3) Basophils (%) (Auto) 1 % (0-3) 1 % (0-3) Neutrophils # (Auto) 1.8 x10^3uL (1.8-7.7) 2.4 x10^3uL (1.8-7.7) Lymphocytes # (Auto) 1.3 x10^3/uL (1.0-4.8) 0.9 x10^3/uL (1.0-4.8) Monocytes # (Auto) 0.5 x10^3/uL (0.0-1.1) 0.6 x10^3/uL (0.0-1.1) Eosinophils # (Auto) 0.1 x10^3/uL (0.0-0.7) 0.1 x10^3/uL (0.0-0.7) Basophils # (Auto) 0.0 x10^3/uL (0.0-0.2) 0.0 x10^3/uL (0.0-0.2) Prothrombin Time 12.8 SEC (11.7-14.0) Prothromb Time International Ratio 1.0 (0.8-1.1) Activated Partial Thromboplast Time 30 SEC (24-38) Sodium Level 145 mmol/L (136-145) 143 mmol/L (136-145) Potassium Level 3.1 mmol/L (3.5-5.1) 2.8 mmol/L (3.5-5.1) Chloride Level 102 mmol/L (98-107) 102 mmol/L (98-107) Carbon Dioxide Level 30 mmol/L (21-32) 25 mmol/L (21-32) Anion Gap 13 (6-14) 16 (6-14) Blood Urea Nitrogen 24 mg/dL (8-26) 21 mg/dL (8-26) Creatinine 2.4 mg/dL (0.7-1.3) 1.7 mg/dL (0.7-1.3) Estimated GFR (Cockcroft-Gault) 34.6 51.5 Glucose Level 138 mg/dL (70-99) 82 mg/dL (70-99) Calcium Level 8.3 mg/dL (8.5-10.1) 7.7 mg/dL (8.5-10.1) Total Bilirubin 0.4 mg/dL (0.2-1.0) 0.6 mg/dL (0.2-1.0) Direct Bilirubin 0.1 mg/dL (0.0-0.2) Aspartate Amino Transf (AST/SGOT) 39 U/L (15-37) 33 U/L (15-37) Alanine Aminotransferase (ALT/SGPT) 24 U/L (16-63) 22 U/L (16-63) Alkaline Phosphatase 65 U/L (46-116) 59 U/L (46-116) Troponin I Quantitative 0.201 ng/mL (0.000-0.055) 0.278 ng/mL (0.000-0.055) 0.266 ng/mL (0.000-0.055) HV-Gma-D-Type Natriuretic Peptide 1425 pg/mL (0-124) Total Protein 7.4 g/dL (6.4-8.2) 7.0 g/dL (6.4-8.2) Albumin 3.6 g/dL (3.4-5.0) 3.4 g/dL (3.4-5.0) Lipase 626 U/L (73-393) Urine Opiates Screen Neg (NEG) Urine Methadone Screen Neg (NEG) Urine Barbiturates Neg (NEG) Urine Phencyclidine Screen Neg (NEG) Urine Amphetamine/Methamphetamine Neg (NEG) Urine Benzodiazepines Screen Neg (NEG) Urine Cocaine Screen Neg (NEG) Urine Cannabinoids Screen Neg (NEG) Urine Ethyl Alcohol Pos (NEG) Heparin Anti-Xa Act, Unfractionated 0.19 IU/mL (0.30-0.70) 0.62 IU/mL (0.30-0.70) BUN/Creatinine Ratio 12 (6-20) Magnesium Level 1.7 mg/dL (1.8-2.4) Albumin/Globulin Ratio 0.9 (1.0-1.7) Triglycerides Level 52 mg/dL (0-150) Cholesterol Level 214 mg/dL (0-200) LDL Cholesterol, Calculated 92 mg/dL (0-100) VLDL Cholesterol, Calculated 10 mg/dL (0-40) Non-HDL Cholesterol Calculated 102 mg/dL (0-129) HDL Cholesterol 112 mg/dL (40-60) Cholesterol/HDL Ratio 1.9 Thyroid Stimulating Hormone (TSH) 0.596 uIU/mL (0.358-3.74) Laboratory Tests Test 04/17/17 20:50 04/17/17 21:15 04/18/17 04:35 04/18/17 10:45 White Blood Count 3.7 x10^3/uL (4.0-11.0) 3.9 x10^3/uL (4.0-11.0) Red Blood Count 4.59 x10^6/uL (4.30-5.70) 4.40 x10^6/uL (4.30-5.70) Hemoglobin 14.7 g/dL (13.0-17.5) 13.9 g/dL (13.0-17.5) Hematocrit 44.2 % (39.0-53.0) 42.4 % (39.0-53.0) Mean Corpuscular Volume 96 fL (79-100) 96 fL (79-100) Mean Corpuscular Hemoglobin 32 pg (25-35) 32 pg (25-35) Mean Corpuscular Hemoglobin Concent 33 g/dL (31-37) 33 g/dL (31-37) Red Cell Distribution Width 16.5 % (11.5-14.5) 16.7 % (11.5-14.5) Platelet Count 155 x10^3/uL (140-400) 149 x10^3/uL (140-400) Neutrophils (%) (Auto) 49 % (31-73) 61 % (31-73) Lymphocytes (%) (Auto) 36 % (24-48) 22 % (24-48) Monocytes (%) (Auto) 12 % (0-9) 14 % (0-9) Eosinophils (%) (Auto) 2 % (0-3) 2 % (0-3) Basophils (%) (Auto) 1 % (0-3) 1 % (0-3) Neutrophils # (Auto) 1.8 x10^3uL (1.8-7.7) 2.4 x10^3uL (1.8-7.7) Lymphocytes # (Auto) 1.3 x10^3/uL (1.0-4.8) 0.9 x10^3/uL (1.0-4.8) Monocytes # (Auto) 0.5 x10^3/uL (0.0-1.1) 0.6 x10^3/uL (0.0-1.1) Eosinophils # (Auto) 0.1 x10^3/uL (0.0-0.7) 0.1 x10^3/uL (0.0-0.7) Basophils # (Auto) 0.0 x10^3/uL (0.0-0.2) 0.0 x10^3/uL (0.0-0.2) Prothrombin Time 12.8 SEC (11.7-14.0) Prothromb Time International Ratio 1.0 (0.8-1.1) Activated Partial Thromboplast Time 30 SEC (24-38) Sodium Level 145 mmol/L (136-145) 143 mmol/L (136-145) Potassium Level 3.1 mmol/L (3.5-5.1) 2.8 mmol/L (3.5-5.1) Chloride Level 102 mmol/L (98-107) 102 mmol/L (98-107) Carbon Dioxide Level 30 mmol/L (21-32) 25 mmol/L (21-32) Anion Gap 13 (6-14) 16 (6-14) Blood Urea Nitrogen 24 mg/dL (8-26) 21 mg/dL (8-26) Creatinine 2.4 mg/dL (0.7-1.3) 1.7 mg/dL (0.7-1.3) Estimated GFR (Cockcroft-Gault) 34.6 51.5 Glucose Level 138 mg/dL (70-99) 82 mg/dL (70-99) Calcium Level 8.3 mg/dL (8.5-10.1) 7.7 mg/dL (8.5-10.1) Total Bilirubin 0.4 mg/dL (0.2-1.0) 0.6 mg/dL (0.2-1.0) Direct Bilirubin 0.1 mg/dL (0.0-0.2) Aspartate Amino Transf (AST/SGOT) 39 U/L (15-37) 33 U/L (15-37) Alanine Aminotransferase (ALT/SGPT) 24 U/L (16-63) 22 U/L (16-63) Alkaline Phosphatase 65 U/L (46-116) 59 U/L (46-116) Troponin I Quantitative 0.201 ng/mL (0.000-0.055) 0.278 ng/mL (0.000-0.055) 0.266 ng/mL (0.000-0.055) RX-Xca-Q-Type Natriuretic Peptide 1425 pg/mL (0-124) Total Protein 7.4 g/dL (6.4-8.2) 7.0 g/dL (6.4-8.2) Albumin 3.6 g/dL (3.4-5.0) 3.4 g/dL (3.4-5.0) Lipase 626 U/L (73-393) Urine Opiates Screen Neg (NEG) Urine Methadone Screen Neg (NEG) Urine Barbiturates Neg (NEG) Urine Phencyclidine Screen Neg (NEG) Urine Amphetamine/Methamphetamine Neg (NEG) Urine Benzodiazepines Screen Neg (NEG) Urine Cocaine Screen Neg (NEG) Urine Cannabinoids Screen Neg (NEG) Urine Ethyl Alcohol Pos (NEG) Heparin Anti-Xa Act, Unfractionated 0.19 IU/mL (0.30-0.70) 0.62 IU/mL (0.30-0.70) BUN/Creatinine Ratio 12 (6-20) Magnesium Level 1.7 mg/dL (1.8-2.4) Albumin/Globulin Ratio 0.9 (1.0-1.7) Triglycerides Level 52 mg/dL (0-150) Cholesterol Level 214 mg/dL (0-200) LDL Cholesterol, Calculated 92 mg/dL (0-100) VLDL Cholesterol, Calculated 10 mg/dL (0-40) Non-HDL Cholesterol Calculated 102 mg/dL (0-129) HDL Cholesterol 112 mg/dL (40-60) Cholesterol/HDL Ratio 1.9 Thyroid Stimulating Hormone (TSH) 0.596 uIU/mL (0.358-3.74) VTE Prophylaxis Ordered VTE Prophylaxis Devices: No VTE Pharmacological Prophylaxi: Yes Assessment/Plan Assessment/Plan chest pain, muscular skeletal pain vs. unstable angina elevated troponin known non ischemia cardiomyopathy with EF 25%, no ICD, compensated now moderate MR, AR, TR, PHTN HTN TOBaccoism alcoholism non compliance hld tammy on ckd 3, vasomotor hypokalemia hypomagnesemia elevated lipase, 2/2 mild alcoholic pancreatitis vs. nausea plan: card consult, TTE fu with gi, abd US, cycle lipase cont some home meds dc heparin drip as per card labs tmr replMag KRISTIAN Perla CHUNMEI MD Apr 18, 2017 13:10
[2017-04-18] MEDS: MORPHINE SULFATE 2 MG/ML DISP.SYRIN. IV PRN ×2 (13:12→20:08)
--- NOTE | 2017-04-18 15:27 | CARD ---
APPROVED REPORT EXAM: Two-dimensional and M-mode echocardiogram with Doppler and color Doppler. Other Information Quality : Average Rhythm : NSR INDICATION Cardiomyopathy Elevated troponin level 2D DIMENSIONS Left Atrium(2D)4.2 (1.6-4.0cm)IVSd1.6 (0.7-1.1cm) Aortic Root(2D)3.0 (2.0-3.7cm)LVDd6.7 (3.9-5.9cm) LVOT Diameter2.4 (1.8-2.4cm)PWd1.6 (0.7-1.1cm) LVDs5.8 (2.5-4.0cm)FS (%) 12.8 % SV61.8 mlLVEF(%)26.8 (>50%) Aortic Valve AoV Peak Wero.183.4cm/sAoV VTI28.3cm AO Peak GR.13.5mmHgLVOT VTI 16.82cm AO Mean GR.7mmHgAI P 1/2 [id number] Mitral Valve MV E Ziwrfdvx17.8cm/sMV E Peak Gr.2mmHg MV DECEL [id number] A Kxtsazoo06.2cm/s MV [id number]/A Ratio1.2 MVA (PHT)3.79cm2 TDI Lateral E' P. V5.53cm/sMedial E' P. V7.01cm/s E/Lateral E'14.1E/Medial E'11.1 Tricuspid Valve TR P. Epsjoiud196lx/sRAP [id number] TR Peak Gr.[id number] LEFT VENTRICLE The Left Ventricle is severely dilated. There is moderate concentric left ventricular hypertrophy. Le ft ventricle systolic function is moderately impaired. The Ejection Fraction is 35%. There is global hypokinesis of the left ventricle. Tissue Doppler imaging reveals moderate left ventricular diastolic dysfunction. RIGHT VENTRICLE The right ventricle is normal size. The right ventricular systolic function is normal. ATRIA The left atrium is borderline dilated. The right atrium size is normal. The interatrial septum is int act with no evidence for an atrial septal defect or patent foramen ovale as noted on 2-D or Doppler i maging. AORTIC VALVE The aortic valve is mildly calcified. The aortic valve is trileaflet. Doppler and Color Flow revealed mild aortic regurgitation. There is no significant aortic valvular stenosis. MITRAL VALVE The mitral valve is normal in structure. There is no mitral valve stenosis. Doppler and Color Flow re vealed mild mitral regurgitation. TRICUSPID VALVE The tricuspid valve is normal in structure and function. Doppler and Color Flow revealed mild tricusp id regurgitation. The PA pressure was estimated at 33 mmHg. There is no tricuspid valve stenosis. PULMONIC VALVE The pulmonic valve is not well visualized. Doppler and Color Flow revealed trace pulmonic valvular re gurgitation. There is no pulmonic valvular stenosis. GREAT VESSELS The aortic root is normal in size. The ascending aorta is normal in size. Pulmonary veins not recorde d. The IVC is normal in size and collapses >50% with inspiration. PERICARDIAL EFFUSION There is no evidence of significant pericardial effusion. Critical Notification Critical Value: No <Conclusion> Left ventricle systolic function is moderately impaired. The Ejection Fraction is 35%. Mild aortic regurgitation. Mild mitral regurgitation. Mild tricuspid regurgitation. The PA pressure was estimated at 33 mmHg. There is no evidence of significant pericardial effusion.
[2017-04-18] MEDS ORDERED: HEPARIN 25,000UTS/500ML PREMIX 500 ML IV PRN ×2 (18:00)
[2017-04-18] MEDS: SIMVASTATIN 10 MG TABLET PO SCH (20:07)
[2017-04-18] MEDS: traMADol 50 MG TABLET PO PRN (23:27)
[2017-04-19] VITALS (12 sets, daily range): BP systolic 136–154; BP diastolic 86–108
[2017-04-19 04:33] LABS: BASO % 1 % (0-3); EOS % 2 % (0-3); HEMATOCRIT 38.8 % (39.0-53.0); HEMOGLOBIN 13.2 g/dL (13.0-17.5); LYMPH # 1.2 x10^3/uL (1.0-4.8); LYMPH % 32 % (24-48); MEAN CORPUSCULAR HEMOGLOBIN 32 pg (25-35); MEAN CORPUSCULAR HGB CONC 34 g/dL (31-37); MEAN CORPUSCULAR VOLUME 95 fL (79-100); MONO % 13 % (0-9); NEUT % 52 % (31-73); PLATELET COUNT 142 x10^3/uL (140-400); RED BLOOD COUNT 4.09 x10^6/uL (4.30-5.70); RED CELL DISTRIBUTION WIDTH 16.9 % (11.5-14.5); WHITE BLOOD COUNT 3.8 x10^3/uL (4.0-11.0)
[2017-04-19 04:41] LABS: CALCIUM 8.2 mg/dL (8.5-10.1); CREATININE 1.9 mg/dL (0.7-1.3); GFR 45.3; POTASSIUM 3.1 mmol/L (3.5-5.1)
[2017-04-19 04:44] LABS: MAGNESIUM 1.8 mg/dL (1.8-2.4)
[2017-04-19] MEDS: IV NORMAL SALINE 1000ML BAG 1,000 ML IV SCH ×2 (07:20→20:40)
[2017-04-19] MEDS ORDERED: POTASSIUM CHLORIDE 20 MEQ TABLET.ER. PO ONE (08:30)
[2017-04-19] MEDS ORDERED: LIDOCAINE 2% 20 ML VIAL. ONE (08:40)
--- NOTE | 2017-04-19 08:48 | PDOC ---
PROGRESS NOTES Chief Complaint Chief Complaint chest pain, muscular skeletal pain vs. unstable angina elevated troponin known non ischemia cardiomyopathy with EF 25%, no ICD, compensated now moderate MR, AR, TR, PHTN HTN TOBaccoism alcoholism non compliance hld tammy on ckd 3, vasomotor hypokalemia hypomagnesemia elevated lipase, 2/2 mild alcoholic pancreatitis vs. nausea History of Present Illness History of Present Illness About to have LHC GEts defensive when we talk about his etoh drinking Claims he is complaint with his home meds and gets a little bit irritated when we talk about it PLAN: Await [facility] results Possible home later or sampson pending [facility] results Vitals Vitals Vital Signs Date Time Temp Pulse Resp B/P (MAP) Pulse Ox O2 Delivery O2 Flow Rate FiO2 04/19/17 07:00 98.2 86 18 147/100 (116) 97 Room Air 98.2 Physical Exam General: Alert, Oriented X3, Cooperative, No acute distress Heart: Regular rate (SR/ST), Normal S1, Normal S2, Other (S4; 3/6 systolic murmur diffuse) Extremities: No cyanosis, No edema Skin: No breakdown, No significant lesion Labs LABS Laboratory Tests Test 04/18/17 10:45 04/18/17 16:58 04/19/17 03:49 Heparin Anti-Xa Act, Unfractionated 0.62 IU/mL (0.30-0.70) 0.48 IU/mL (0.30-0.70) 0.48 IU/mL (0.30-0.70) Troponin I Quantitative 0.266 ng/mL (0.000-0.055) White Blood Count 3.8 x10^3/uL (4.0-11.0) Red Blood Count 4.09 x10^6/uL (4.30-5.70) Hemoglobin 13.2 g/dL (13.0-17.5) Hematocrit 38.8 % (39.0-53.0) Mean Corpuscular Volume 95 fL (79-100) Mean Corpuscular Hemoglobin 32 pg (25-35) Mean Corpuscular Hemoglobin Concent 34 g/dL (31-37) Red Cell Distribution Width 16.9 % (11.5-14.5) Platelet Count 142 x10^3/uL (140-400) Neutrophils (%) (Auto) 52 % (31-73) Lymphocytes (%) (Auto) 32 % (24-48) Monocytes (%) (Auto) 13 % (0-9) Eosinophils (%) (Auto) 2 % (0-3) Basophils (%) (Auto) 1 % (0-3) Neutrophils # (Auto) 2.0 x10^3uL (1.8-7.7) Lymphocytes # (Auto) 1.2 x10^3/uL (1.0-4.8) Monocytes # (Auto) 0.5 x10^3/uL (0.0-1.1) Eosinophils # (Auto) 0.1 x10^3/uL (0.0-0.7) Basophils # (Auto) 0.0 x10^3/uL (0.0-0.2) Sodium Level 139 mmol/L (136-145) Potassium Level 3.1 mmol/L (3.5-5.1) Chloride Level 101 mmol/L (98-107) Carbon Dioxide Level 31 mmol/L (21-32) Anion Gap 7 (6-14) Blood Urea Nitrogen 28 mg/dL (8-26) Creatinine 1.9 mg/dL (0.7-1.3) Estimated GFR (Cockcroft-Gault) 45.3 Glucose Level 107 mg/dL (70-99) Calcium Level 8.2 mg/dL (8.5-10.1) Magnesium Level 1.8 mg/dL (1.8-2.4) Lipase 254 U/L (73-393) Review of Systems Review of Systems denies 14 pt reviewed Assessment and Plan Assessmemt and Plan Problems Medical Problems: (1) Chest pain Status: Acute (2) Heart failure Status: Acute (3) Hypertension Status: Acute (4) Hypokalemia Status: Acute (5) Kidney failure Status: Acute Problems: Comment Review of Relevant I have reviewed the following items favian (where applicable) has been applied. Labs Laboratory Tests Test 04/17/17 20:50 04/17/17 21:15 04/18/17 04:35 04/18/17 10:45 White Blood Count 3.7 x10^3/uL (4.0-11.0) 3.9 x10^3/uL (4.0-11.0) Red Blood Count 4.59 x10^6/uL (4.30-5.70) 4.40 x10^6/uL (4.30-5.70) Hemoglobin 14.7 g/dL (13.0-17.5) 13.9 g/dL (13.0-17.5) Hematocrit 44.2 % (39.0-53.0) 42.4 % (39.0-53.0) Mean Corpuscular Volume 96 fL (79-100) 96 fL (79-100) Mean Corpuscular Hemoglobin 32 pg (25-35) 32 pg (25-35) Mean Corpuscular Hemoglobin Concent 33 g/dL (31-37) 33 g/dL (31-37) Red Cell Distribution Width 16.5 % (11.5-14.5) 16.7 % (11.5-14.5) Platelet Count 155 x10^3/uL (140-400) 149 x10^3/uL (140-400) Neutrophils (%) (Auto) 49 % (31-73) 61 % (31-73) Lymphocytes (%) (Auto) 36 % (24-48) 22 % (24-48) Monocytes (%) (Auto) 12 % (0-9) 14 % (0-9) Eosinophils (%) (Auto) 2 % (0-3) 2 % (0-3) Basophils (%) (Auto) 1 % (0-3) 1 % (0-3) Neutrophils # (Auto) 1.8 x10^3uL (1.8-7.7) 2.4 x10^3uL (1.8-7.7) Lymphocytes # (Auto) 1.3 x10^3/uL (1.0-4.8) 0.9 x10^3/uL (1.0-4.8) Monocytes # (Auto) 0.5 x10^3/uL (0.0-1.1) 0.6 x10^3/uL (0.0-1.1) Eosinophils # (Auto) 0.1 x10^3/uL (0.0-0.7) 0.1 x10^3/uL (0.0-0.7) Basophils # (Auto) 0.0 x10^3/uL (0.0-0.2) 0.0 x10^3/uL (0.0-0.2) Prothrombin Time 12.8 SEC (11.7-14.0) Prothromb Time International Ratio 1.0 (0.8-1.1) Activated Partial Thromboplast Time 30 SEC (24-38) Sodium Level 145 mmol/L (136-145) 143 mmol/L (136-145) Potassium Level 3.1 mmol/L (3.5-5.1) 2.8 mmol/L (3.5-5.1) Chloride Level 102 mmol/L (98-107) 102 mmol/L (98-107) Carbon Dioxide Level 30 mmol/L (21-32) 25 mmol/L (21-32) Anion Gap 13 (6-14) 16 (6-14) Blood Urea Nitrogen 24 mg/dL (8-26) 21 mg/dL (8-26) Creatinine 2.4 mg/dL (0.7-1.3) 1.7 mg/dL (0.7-1.3) Estimated GFR (Cockcroft-Gault) 34.6 51.5 Glucose Level 138 mg/dL (70-99) 82 mg/dL (70-99) Calcium Level 8.3 mg/dL (8.5-10.1) 7.7 mg/dL (8.5-10.1) Total Bilirubin 0.4 mg/dL (0.2-1.0) 0.6 mg/dL (0.2-1.0) Direct Bilirubin 0.1 mg/dL (0.0-0.2) Aspartate Amino Transf (AST/SGOT) 39 U/L (15-37) 33 U/L (15-37) Alanine Aminotransferase (ALT/SGPT) 24 U/L (16-63) 22 U/L (16-63) Alkaline Phosphatase 65 U/L (46-116) 59 U/L (46-116) Troponin I Quantitative 0.201 ng/mL (0.000-0.055) 0.278 ng/mL (0.000-0.055) 0.266 ng/mL (0.000-0.055) LH-Wkh-M-Type Natriuretic Peptide 1425 pg/mL (0-124) Total Protein 7.4 g/dL (6.4-8.2) 7.0 g/dL (6.4-8.2) Albumin 3.6 g/dL (3.4-5.0) 3.4 g/dL (3.4-5.0) Lipase 626 U/L (73-393) Urine Opiates Screen Neg (NEG) Urine Methadone Screen Neg (NEG) Urine Barbiturates Neg (NEG) Urine Phencyclidine Screen Neg (NEG) Urine Amphetamine/Methamphetamine Neg (NEG) Urine Benzodiazepines Screen Neg (NEG) Urine Cocaine Screen Neg (NEG) Urine Cannabinoids Screen Neg (NEG) Urine Ethyl Alcohol Pos (NEG) Heparin Anti-Xa Act, Unfractionated 0.19 IU/mL (0.30-0.70) 0.62 IU/mL (0.30-0.70) BUN/Creatinine Ratio 12 (6-20) Hemoglobin A1c 5.0 % (4.8-5.6) Magnesium Level 1.7 mg/dL (1.8-2.4) Albumin/Globulin Ratio 0.9 (1.0-1.7) Triglycerides Level 52 mg/dL (0-150) Cholesterol Level 214 mg/dL (0-200) LDL Cholesterol, Calculated 92 mg/dL (0-100) VLDL Cholesterol, Calculated 10 mg/dL (0-40) Non-HDL Cholesterol Calculated 102 mg/dL (0-129) HDL Cholesterol 112 mg/dL (40-60) Cholesterol/HDL Ratio 1.9 Thyroid Stimulating Hormone (TSH) 0.596 uIU/mL (0.358-3.74) Test 04/18/17 16:58 04/19/17 03:49 Heparin Anti-Xa Act, Unfractionated 0.48 IU/mL (0.30-0.70) 0.48 IU/mL (0.30-0.70) White Blood Count 3.8 x10^3/uL (4.0-11.0) Red Blood Count 4.09 x10^6/uL (4.30-5.70) Hemoglobin 13.2 g/dL (13.0-17.5) Hematocrit 38.8 % (39.0-53.0) Mean Corpuscular Volume 95 fL (79-100) Mean Corpuscular Hemoglobin 32 pg (25-35) Mean Corpuscular Hemoglobin Concent 34 g/dL (31-37) Red Cell Distribution Width 16.9 % (11.5-14.5) Platelet Count 142 x10^3/uL (140-400) Neutrophils (%) (Auto) 52 % (31-73) Lymphocytes (%) (Auto) 32 % (24-48) Monocytes (%) (Auto) 13 % (0-9) Eosinophils (%) (Auto) 2 % (0-3) Basophils (%) (Auto) 1 % (0-3) Neutrophils # (Auto) 2.0 x10^3uL (1.8-7.7) Lymphocytes # (Auto) 1.2 x10^3/uL (1.0-4.8) Monocytes # (Auto) 0.5 x10^3/uL (0.0-1.1) Eosinophils # (Auto) 0.1 x10^3/uL (0.0-0.7) Basophils # (Auto) 0.0 x10^3/uL (0.0-0.2) Sodium Level 139 mmol/L (136-145) Potassium Level 3.1 mmol/L (3.5-5.1) Chloride Level 101 mmol/L (98-107) Carbon Dioxide Level 31 mmol/L (21-32) Anion Gap 7 (6-14) Blood Urea Nitrogen 28 mg/dL (8-26) Creatinine 1.9 mg/dL (0.7-1.3) Estimated GFR (Cockcroft-Gault) 45.3 Glucose Level 107 mg/dL (70-99) Calcium Level 8.2 mg/dL (8.5-10.1) Magnesium Level 1.8 mg/dL (1.8-2.4) Lipase 254 U/L (73-393) Laboratory Tests Test 04/18/17 10:45 04/18/17 16:58 04/19/17 03:49 Heparin Anti-Xa Act, Unfractionated 0.62 IU/mL (0.30-0.70) 0.48 IU/mL (0.30-0.70) 0.48 IU/mL (0.30-0.70) Troponin I Quantitative 0.266 ng/mL (0.000-0.055) White Blood Count 3.8 x10^3/uL (4.0-11.0) Red Blood Count 4.09 x10^6/uL (4.30-5.70) Hemoglobin 13.2 g/dL (13.0-17.5) Hematocrit 38.8 % (39.0-53.0) Mean Corpuscular Volume 95 fL (79-100) Mean Corpuscular Hemoglobin 32 pg (25-35) Mean Corpuscular Hemoglobin Concent 34 g/dL (31-37) Red Cell Distribution Width 16.9 % (11.5-14.5) Platelet Count 142 x10^3/uL (140-400) Neutrophils (%) (Auto) 52 % (31-73) Lymphocytes (%) (Auto) 32 % (24-48) Monocytes (%) (Auto) 13 % (0-9) Eosinophils (%) (Auto) 2 % (0-3) Basophils (%) (Auto) 1 % (0-3) Neutrophils # (Auto) 2.0 x10^3uL (1.8-7.7) Lymphocytes # (Auto) 1.2 x10^3/uL (1.0-4.8) Monocytes # (Auto) 0.5 x10^3/uL (0.0-1.1) Eosinophils # (Auto) 0.1 x10^3/uL (0.0-0.7) Basophils # (Auto) 0.0 x10^3/uL (0.0-0.2) Sodium Level 139 mmol/L (136-145) Potassium Level 3.1 mmol/L (3.5-5.1) Chloride Level 101 mmol/L (98-107) Carbon Dioxide Level 31 mmol/L (21-32) Anion Gap 7 (6-14) Blood Urea Nitrogen 28 mg/dL (8-26) Creatinine 1.9 mg/dL (0.7-1.3) Estimated GFR (Cockcroft-Gault) 45.3 Glucose Level 107 mg/dL (70-99) Calcium Level 8.2 mg/dL (8.5-10.1) Magnesium Level 1.8 mg/dL (1.8-2.4) Lipase 254 U/L (73-393) Medications Current Medications Aspirin (Children'S Aspirin) 324 mg 1X ONCE PO Last administered on 04/17/17t 21:21; Start 04/17/17 at 21:30; Stop 04/17/17 at 21:31; Status DC Nitroglycerin (Nitrostat) 0.4 mg PRN Q5MIN PRN SL CP RATING > 1/10 Last administered on 04/18/17 09:51; Start 04/17/17 at 21:15; Stop 04/18/17 at 21:14 ; Status DC Fentanyl Citrate (Fentanyl 2ml Vial) 25 mcg PRN Q15MIN PRN IV PAIN GREATER THAN 3/10 Last administered on 04/17/17 22:38; Start 04/17/17 at 21:15; Stop at 21:14; Status DC Heparin Sodium (Porcine) (Heparin Sodium) 4,000 unit 1X ONCE IV Last administered on 04/17/17 22:28; Start 04/17/17 at 22:30; Stop 04/17/17 at 22:31 ; Status DC Heparin Sodium/ Dextrose 500 ml @ 0 mls/hr CONT PRN IV SEE I/O RECORD Last administered on 04/17/17 22:32; Start 04/17/17 at 22:15; Stop 04/18/17 at 11:58 ; Status DC Heparin Sodium (Porcine) (Heparin Sodium) 2,700 unit PRN Q6HRS PRN IV FOR UFH LEVEL LESS THAN 0.2 Last administered on 04/18/17 06:25; Start 04/17/17 at 22: 15; Stop 04/18/17 at 15:00; Status DC Info (Anti-Coagulation Monitoring By Pharmacy) 1 each PRN DAILY PRN MC SEE COMMENTS Last administered on 04/18/17 00:45; Start 04/17/17 at 22:15 Aspirin (Children'S Aspirin) 324 mg 1X ONCE PO ; Start 04/17/17 at 23:00; Stop 04/17/17 at 23:01; Status Cancel Nitroglycerin (Nitro-Bid Oint) 1 inch 1X ONCE TP Last administered on 23:02; Start 04/17/17 at 23:00; Stop 04/17/17 at 23:01; Status DC Sodium Chloride 1,000 ml @ 1,000 mls/hr 1X ONCE IV ; Start 04/17/17 at 23:00; Stop 04/17/17 at 23:59; Status DC Ondansetron HCl (Zofran) 4 mg PRN Q8HRS PRN IV NAUSEA/VOMITING Last administered on 04/18/17 09:23; Start 04/17/17 at 22:45; Stop 04/18/17 at 09:57 ; Status DC Morphine Sulfate 4 mg PRN Q2HR PRN IV SEVERE PAIN Last administered on 01:02; Start 04/17/17 at 22:45; Stop 04/18/17 at 22:44; Status DC Sodium Chloride 1,000 ml @ 125 mls/hr Q8H IV Last administered on 04/17/17 22 :47; Start 04/17/17 at 22:39; Stop 04/18/17 at 22:38; Status DC Acetaminophen (Tylenol) 650 mg PRN Q4HRS PRN PO FEVER; Start 04/17/17 at 22:45 ; Stop 04/18/17 at 09:57; Status DC Hydralazine HCl (Apresoline) 10 mg PRN Q4HRS PRN IVP ELEVATED BP, SEE COMMENTS Last administered on 04/18/17 08:03; Start 04/18/17 at 00:45 Multivitamins 10 ml/Folic Acid 1 mg/Thiamine HCl 100 mg/Dextrose/ Sodium Chloride 1,011.1 ml @ 100 mls/ hr DAILY IV Last administered on 04/18/17 09: 48; Start 04/18/17 at 09:00; Stop 04/22/17 at 19:07 Magnesium Sulfate/ Dextrose 50 ml @ 25 mls/hr 1X ONCE IV Last administered on 04/18/17 07:41; Start 04/18/17 at 07:00; Stop 04/18/17 at 08:59; Status DC Potassium Chloride 100 ml @ 100 mls/hr Q1H IV Last administered on 04/18/17 13:01; Start 04/18/17 at 07:00; Stop 04/18/17 at 10:59; Status DC Amlodipine Besylate (Norvasc) 10 mg DAILY PO Last administered on 04/18/17 11: 47; Start 04/18/17 at 11:00 Furosemide (Lasix) 40 mg DAILY PO Last administered on 04/18/17 11:47; Start 04/18/17 at 11:00 Hydralazine HCl (Apresoline) 75 mg TID PO Last administered on 04/18/17 20:07 ; Start 04/18/17 at 11:00 Isosorbide Mononitrate (Ismo) 40 mg DAILY PO Last administered on 04/18/17 13: 02; Start 04/18/17 at 10:30 Simvastatin (Zocor) 10 mg QHS PO Last administered on 04/18/17 20:07; Start at 21:00 Carvedilol (Coreg) 25 mg BIDWMEALS PO Last administered on 04/18/17 18:11; Start 04/18/17 at 11:00 Potassium Chloride (Klor-Con) 20 meq DAILYWBKFT PO ; Start 04/18/17 at 12:00 Acetaminophen (Tylenol) 650 mg PRN Q6HRS PRN PO FEVER; Start 04/18/17 at 10:00 Ondansetron HCl (Zofran) 4 mg PRN Q6HRS PRN IV NAUSEA/VOMITING; Start 04/18/17 at 10:00 Morphine Sulfate 2 mg PRN Q2HR PRN IV PAIN Last administered on 04/18/17 20:08 ; Start 04/18/17 at 10:00 Tramadol HCl (Ultram) 50 mg PRN Q6HRS PRN PO PAIN Last administered on 23:27; Start 04/18/17 at 10:00 Hydralazine HCl (Apresoline) 10 mg PRN Q4HRS PRN IVP ELEVATED BP, SEE COMMENTS ; Start 04/18/17 at 10:00; Status Cancel Docusate Sodium (Colace) 100 mg PRN DAILY PRN PO CONSTIPATION; Start 04/18/17 at 10:00 Aspirin (Ecotrin) 81 mg DAILYWBKFT PO ; Start 04/19/17 at 08:00 Enoxaparin Sodium (Lovenox 100mg Syringe) 90 mg 1X ONCE SQ ; Start 04/18/17 at 12:15; Stop 04/18/17 at 12:16; Status DC Heparin Sodium/ Dextrose 500 ml @ 0 mls/hr CONT PRN IV SEE I/O RECORD; Start at 18:00; Status UNV Sodium Chloride 1,000 ml @ 75 mls/hr [id number] IV ; Start 04/18/17 at 18:00 Heparin Sodium/ Dextrose 500 ml @ 20 mls/hr CONT PRN IV SEE I/O RECORD Last administered on 04/18/17t 18:14; Start 04/18/17 at 18:00 Potassium Chloride (Klor-Con) 40 meq 1X ONCE PO ; Start 04/19/17 at 08:30; Stop 04/19/17 at 08:31; Status DC Heparin Sodium/ Sodium Chloride 1,000 ml @ As Directed STK-MED ONCE .ROUTE ; Start 04/19/17 at 08:40; Stop 04/19/17 at 08:41; Status DC Lidocaine HCl 20 ml STK-MED ONCE .ROUTE ; Start 04/19/17 at 08:40; Stop at 08:41; Status DC Active Scripts Active Reported Potassium Chloride 20 Meq Tablet.er 20 Meq PO DAILY Digoxin 250 Mcg Tablet 1 Tab PO DAILY Norvasc (Amlodipine Besylate) 10 Mg Tablet 10 Mg PO DAILY Isosorbide Mononitrate 20 Mg Tablet 40 Mg PO DAILY Coreg (Carvedilol) 25 Mg Tablet 1 Tab PO BID Simvastatin 10 Mg Tablet 1 Tab PO QHS Hydralazine Hcl 25 Mg Tablet 3 Tab PO TID Furosemide 40 Mg Tablet 1 Tab PO DAILY Vitals/I & O Vital Sign - Last 24 Hours 04/18/17 04/18/17 04/18/17 04/18/17 09:51 11:00 11:46 11:47 Temp 98.2 98.2 Pulse 103 104 104 104 Resp 20 B/P (MAP) 167/88 176/91 (119) 176/91 176/91 Pulse Ox 95 O2 Delivery Room Air 04/18/17 04/18/17 04/18/17 04/18/17 11:47 13:02 13:12 13:42 Pulse 104 104 Resp 18 18 B/P (MAP) 176/91 176/91 Pulse Ox 95 O2 Delivery Room Air 04/18/17 04/18/17 04/18/17 04/18/17 15:00 18:11 19:50 20:00 Temp 98.1 98.1 98.1 98.1 Pulse 91 91 83 Resp 18 16 B/P (MAP) 132/73 (92) 132/73 137/93 (108) Pulse Ox 96 97 O2 Delivery Room Air Room Air Room Air 04/18/17 04/18/17 04/18/17 04/18/17 20:07 20:08 20:38 23:27 Pulse 91 B/P (MAP) 132/73 Pulse Ox 96 96 96 O2 Delivery Room Air Room Air Room Air 04/18/17 04/19/17 04/19/17 04/19/17 23:59 00:27 03:15 03:16 Temp 98.0 98.3 98.0 98.3 Pulse 80 80 77 Resp 16 16 B/P (MAP) 138/68 (91) 151/108 (122) 143/100 (114) Pulse Ox 94 94 97 O2 Delivery Room Air Room Air Room Air 04/19/17 07:00 Temp 98.2 98.2 Pulse 86 Resp 18 B/P (MAP) 147/100 (116) Pulse Ox 97 O2 Delivery Room Air Intake and Output 04/18/17 04/18/17 04/19/17 14:59 22:59 06:59 Intake Total 1860 ml 988 ml Output Total 300 ml 825 ml Balance -300 ml 1035 ml 988 ml YA PATEL MD Apr 19, 2017 08:48
[2017-04-19] MEDS ORDERED: ASPIRIN 325 MG TABLET ONE (08:58)
[2017-04-19] MEDS ORDERED: fentaNYL PF VIAL 100 MCG/2 ML VIAL ONE (08:58)
[2017-04-19] MEDS ORDERED: MIDAZOLAM HCL/PF 2 MG/2 ML VIAL. ONE (08:58)
[2017-04-19] MEDS ORDERED: NITROGLYCERIN 200 MCG/2 ML SYRINGE FOR CATH/VASC LAB. ONE (09:03)
[2017-04-19] MEDS ORDERED: HEPARIN for IV BOLUS 10,000 UNIT/10 ML VIAL. ONE (09:03)
[2017-04-19] MEDS ORDERED: VERAPAMIL 5 MG/2 ML VIAL. ONE (09:03)
[2017-04-19] MEDS: ASPIRIN ENTERIC COATED 81 MG TABLET.DR. PO SCH ×2 (09:05→10:19)
[2017-04-19] MEDS ORDERED: VERAPAMIL 5 MG/2 ML VIAL. IART ONE (09:15)
[2017-04-19] MEDS ORDERED: LIDOCAINE 2% 20 ML VIAL. IJ ONE (09:15)
[2017-04-19] MEDS ORDERED: MIDAZOLAM HCL/PF 2 MG/2 ML VIAL. IV ONE (09:15)
[2017-04-19] MEDS ORDERED: fentaNYL PF VIAL 100 MCG/2 ML VIAL IV ONE (09:15)
[2017-04-19] MEDS ORDERED: HEPARIN for IV BOLUS 10,000 UNIT/10 ML VIAL. IART ONE (09:15)
[2017-04-19] MEDS ORDERED: NITROGLYCERIN 200 MCG/2 ML SYRINGE FOR CATH/VASC LAB. IART ONE (09:15)
--- NOTE | 2017-04-19 09:53 | CARD ---
APPROVED REPORT Procedure(s) performed: Sedation Time: 22min LH, Coronary angiography HISTORY The patient is a 51 year-old male with a history of : renal failure without dialysis, tobacco history () , hypertension, dyslipidemia. INDICATION The indication(s) include : non-STEMI , chest pain. PROCEDURE NARRATIVE The patient was brought electively to the cardiac catheterization lab. A timeout was performed confi rming the patient's name, date of , procedure, and site of procedure. All necessary personnel w ere wearing the appropriate protective equipment and radiation monitor devices. After explaining the risks and benefits of the procedure and alternatives, informed consent was obtained. (See nursing no aleisha for medications administered). The right wrist was sterilely prepped and draped in the usual fas hion. The right wrist was infiltrated with 1 mL of 2% lidocaine for subcutaneous anesthesia. A 6 Fr ench Terumo glide sheath was inserted into the right radial artery without difficulty. Right and lef t coronary angiography was performed using a 6Fr TIG 4.0 and a JL4 catheter. Left ventricular end di astolic pressure was obtained with a pigtail catheter and pullback was performed after left ventricul ography. All catheter exchanges and advancements were performed over a guidewire. At case completio n the right radial sheath was removed and a Terumo radial band was applied with 13 ml of air. The pa tient tolerated the procedure well and there were no immediate complications. HEMODYNAMICS: LVEDP 30 mm Hg No gradient on LV to aortic pullback. LEFT VENTRICULOGRAM: Deferred due to renal insufficiency and known normal EF by echo. CORONARY ANGIOGRAPHY: LM is a large caliber vessel with normal angiographic appearance. LAD is a large caliber vessel with normal angiographic appearance. D1 is a moderate caliber vessel with normal angiographic apeparance. LCx is a moderate caliber non-dominant vessel with normal angiographic appearance. OM1 is a moderate caliber vessel with normal angiographic appearance. RCA is a large caliber dominant vessel with normal angiographic appearance. RPDA and RPL are moderate caliber vessels with normal angiographic appearance. Contrast dose: 45ml Conclusion 1. Elevated left ventricular filling pressures due to chronic uncontrolled HT 2. No obstructive coronary disease.
--- NOTE | 2017-04-19 09:56 | RAD ---
Abdominal ultrasound complete, 04/19/2017 Indication: Elevated lipase, alcohol abuse, evaluate for gallstones. Comparison: None. Findings: There is diffuse heterogeneity of the visualized proximal pancreatic head and body. There is mild prominence of the visualized upper IVC and central hepatic veins. There is homogeneous echotexture of the visualized liver parenchyma without suspicious mass or fluid collection. Aorta measurements: Proximal 2.6 cm AP, mid 2.1 cm AP, distal 2.1 cm AP Main portal vein is patent with normal direction of flow maximum velocity of 34 cm/s. Right kidney measures 11.2 cm in length without collecting system dilatation. There are 2 small simple appearing cysts in the right kidney, largest interpolar region measuring up to 1.2 cm an additional smaller simple appearing cyst at this pole measuring up to 0.9 cm. Gallbladder is only minimally distended with mild wall thickening up to 4 mm without cholelithiasis or pericholecystic fluid. No intra or extra hepatic plate ductal dilatation. Common bile duct measures 3 mm Spleen measures 8.9 cm. Left kidney is present measuring up to 11.1 cm without collecting system dilatation, perinephric fluid collection or suspicious contour deforming mass. Impression: 1. Partially contracted gallbladder with mild wall thickening and no cholelithiasis or pericholecystic fluid. Findings are not definitive for acute cholecystitis. If further evaluation is clinically indicated, nuclear medicine HIDA scan could be obtained. 2. Mild heterogeneity of the visualized pancreas, may be related to acute interstitial pancreatitis.
--- NOTE | 2017-04-19 10:09 | PDOC ---
Subjective: Subjective: Denies pain. Objective: Vital Signs: Vital Signs Date Time Temp Pulse Resp B/P (MAP) Pulse Ox O2 Delivery O2 Flow Rate FiO2 04/19/17 09:28 80 166/104 04/19/17 09:27 20 100 Nasal Cannula 2.0 04/19/17 07:00 98.2 98.2 Labs: Laboratory Tests Test 04/18/17 10:45 04/18/17 16:58 04/19/17 03:49 Heparin Anti-Xa Act, Unfractionated 0.62 IU/mL 0.48 IU/mL 0.48 IU/mL Troponin I Quantitative 0.266 ng/mL White Blood Count 3.8 x10^3/uL Red Blood Count 4.09 x10^6/uL Hemoglobin 13.2 g/dL Hematocrit 38.8 % Mean Corpuscular Volume 95 fL Mean Corpuscular Hemoglobin 32 pg Mean Corpuscular Hemoglobin Concent 34 g/dL Red Cell Distribution Width 16.9 % Platelet Count 142 x10^3/uL Neutrophils (%) (Auto) 52 % Lymphocytes (%) (Auto) 32 % Monocytes (%) (Auto) 13 % Eosinophils (%) (Auto) 2 % Basophils (%) (Auto) 1 % Neutrophils # (Auto) 2.0 x10^3uL Lymphocytes # (Auto) 1.2 x10^3/uL Monocytes # (Auto) 0.5 x10^3/uL Eosinophils # (Auto) 0.1 x10^3/uL Basophils # (Auto) 0.0 x10^3/uL Sodium Level 139 mmol/L Potassium Level 3.1 mmol/L Chloride Level 101 mmol/L Carbon Dioxide Level 31 mmol/L Anion Gap 7 Blood Urea Nitrogen 28 mg/dL Creatinine 1.9 mg/dL Estimated GFR (Cockcroft-Gault) 45.3 Glucose Level 107 mg/dL Calcium Level 8.2 mg/dL Magnesium Level 1.8 mg/dL Lipase 254 U/L Imaging: Abd US There is diffuse heterogeneity of the visualized proximal pancreatic head and body. There is mild prominence of the visualized upper IVC and central hepatic veins. There is homogeneous echotexture of the visualized liver parenchyma without suspicious mass or fluid collection. Aorta measurements: Proximal 2.6 cm AP, mid 2.1 cm AP, distal 2.1 cm AP Main portal vein is patent with normal direction of flow maximum velocity of 34 cm/s. Right kidney measures 11.2 cm in length without collecting system dilatation. There are 2 small simple appearing cysts in the right kidney, largest interpolar region measuring up to 1.2 cm an additional smaller simple appearing cyst at this pole measuring up to 0.9 cm. Gallbladder is only minimally distended with mild wall thickening up to 4 mm without cholelithiasis or pericholecystic fluid. No intra or extra hepatic plate ductal dilatation. Common bile duct measures 3 mm Spleen measures 8.9 cm. Left kidney is present measuring up to 11.1 cm without collecting system dilatation, perinephric fluid collection or suspicious contour deforming mass. Impression: 1. Partially contracted gallbladder with mild wall thickening and no cholelithiasis or pericholecystic fluid. Findings are not definitive for acute cholecystitis. If further evaluation is clinically indicated, nuclear medicine HIDA scan could be obtained. 2. Mild heterogeneity of the visualized pancreas, may be related to acute interstitial pancreatitis. Cardiac cath Conclusion 1. Elevated left ventricular filling pressures due to chronic uncontrolled HT 2. No obstructive coronary disease. PE: GEN: NAD, just back from cath, staff in room NEURO/PSYCH: A & O 3 A/P: Chest pain -cath ok as above Elevated lipase (resolved), alcohol abuse -abd US as above: contracted GB w/ mild wall thickening but not cholelithiasis or cholecystitis, also note heterogeneous pancreas -- Pancreatitis likely 2/2 alcohol, advise avoidance of this. Could consider CT later for further eval of pancreas. DC per primary. KARUNA SEXTON Apr 19, 2017 10:09
[2017-04-19] MEDS: MULTIVIT INFUSN,ADULT 4,VIT K 10 ML, FOLIC ACID 1 MG, THIAMINE 100 MG in IV DEXTROSE 5 ... IV SCH (10:17)
[2017-04-19] MEDS: POTASSIUM CHLORIDE 20 MEQ TABLET.ER. PO SCH (10:17)
[2017-04-19] MEDS: traMADol 50 MG TABLET PO PRN ×2 (10:19→22:35)
[2017-04-19] MEDS: hydrALAZINE 25 MG TABLET PO SCH ×3 (10:19→20:59)
[2017-04-19] MEDS: ISOSORBIDE MONONITRATE 20 MG TABLET PO SCH (10:20)
[2017-04-19] MEDS: FUROSEMIDE 40 MG TABLET. PO SCH (10:20)
[2017-04-19] MEDS: CARVEDILOL 12.5 MG TABLET. PO SCH ×2 (10:21→16:59)
[2017-04-19] MEDS: amLODIPine BESYLATE 10 MG TABLET PO SCH (10:21)
[2017-04-19] MEDS: MORPHINE SULFATE 2 MG/ML DISP.SYRIN. IV PRN (10:22)
[2017-04-19] MEDS ORDERED: IODIXANOL 320 MG/ML 100 ML VIAL. IART ONE (13:30)
[2017-04-19] MEDS: SIMVASTATIN 10 MG TABLET PO SCH (20:59)
[2017-04-20 03:00] VITALS: BP 152/103
[2017-04-20 07:00] VITALS: BP 175/104
[2017-04-20] MEDS: CARVEDILOL 12.5 MG TABLET. PO SCH (08:13)
[2017-04-20] MEDS: POTASSIUM CHLORIDE 20 MEQ TABLET.ER. PO SCH (08:13)
[2017-04-20] MEDS: MULTIVIT INFUSN,ADULT 4,VIT K 10 ML, FOLIC ACID 1 MG, THIAMINE 100 MG in IV DEXTROSE 5 ... IV SCH (08:14)
[2017-04-20] MEDS: hydrALAZINE 25 MG TABLET PO SCH (08:14)
[2017-04-20] MEDS: ISOSORBIDE MONONITRATE 20 MG TABLET PO SCH (08:15)
[2017-04-20] MEDS: FUROSEMIDE 40 MG TABLET. PO SCH (08:15)
[2017-04-20] MEDS: amLODIPine BESYLATE 10 MG TABLET PO SCH (08:15)
[2017-04-20] MEDS: traMADol 50 MG TABLET PO PRN (08:16)
[2017-04-20] MEDS: IV NORMAL SALINE 1000ML BAG 1,000 ML IV SCH (08:18)
[2017-04-20] MEDS ORDERED: HYDR100T24 PO (09:34)
[2017-04-20] MEDS ORDERED: hydrALAZINE 25 MG TABLET PO ONE (10:00)
--- NOTE | 2017-04-20 10:11 | PDOC ---
Subjective: Subjective: Feeling better, eating well w/o abd pain. Objective: Objective: Per RN - still elevated BP, possible DC today, no GI concerns. Vital Signs: Vital Signs Date Time Temp Pulse Resp B/P (MAP) Pulse Ox O2 Delivery O2 Flow Rate FiO2 04/20/17 10:03 78 159/102 04/20/17 09:16 18 98 Room Air 04/20/17 07:00 97.9 97.9 04/19/17 23:36 2.0 PE: GEN: NAD LUNGS: clear HEART: RRR ABD: S/ND/NT NEURO/PSYCH: A & O 3 A/P: Chest pain, HTN Elevated lipase (resolved), alcohol abuse -abd US: no cholelithiasis or cholecystitis, heterogeneous pancreas -- DC per primary. Abstinence from alcohol recommended. KARUNA SEXTON Apr 20, 2017 10:11
[2017-04-20 11:00] VITALS: BP 130/87
--- NOTE | 2017-04-20 13:10 | PDOC3 ---
Discharge Summary Visit Information Date of Admission: Apr 17, 2017 Date of Discharge: Apr 20, 2017 Admitting Diagnosis Comment: chest pain, muscular skeletal pain vs. unstable angina elevated troponin known non ischemia cardiomyopathy with EF 25%, no ICD, compensated now moderate MR, AR, TR, PHTN HTN TOBaccoism alcoholism non compliance hld tammy on ckd 3, vasomotor hypokalemia hypomagnesemia elevated lipase, 2/2 mild alcoholic pancreatitis vs. nausea Final Diagnosis Problems Medical Problems: (1) Chest pain Status: Acute (2) Heart failure Status: Acute (3) Hypertension Status: Acute (4) Hypokalemia Status: Acute (5) Kidney failure Status: Acute Brief Hospital Course Allergies Allergies Coded Allergies Type Severity Reaction Last Updated Verified SILVER Inhibitors Allergy Severe Anaphylaxis 04/30/16 Yes lisinopril Allergy Severe Swelling 04/29/16 Yes Vital Signs Vital Signs Date Time Temp Pulse Resp B/P (MAP) Pulse Ox O2 Delivery O2 Flow Rate FiO2 04/20/17 11:00 97.9 76 18 130/87 (101) 97 Room Air 97.9 04/19/17 23:36 2.0 Lab Results Laboratory Tests Test 04/18/17 16:58 04/19/17 03:49 Heparin Anti-Xa Act, Unfractionated 0.48 IU/mL (0.30-0.70) 0.48 IU/mL (0.30-0.70) White Blood Count 3.8 x10^3/uL (4.0-11.0) Red Blood Count 4.09 x10^6/uL (4.30-5.70) Hemoglobin 13.2 g/dL (13.0-17.5) Hematocrit 38.8 % (39.0-53.0) Mean Corpuscular Volume 95 fL (79-100) Mean Corpuscular Hemoglobin 32 pg (25-35) Mean Corpuscular Hemoglobin Concent 34 g/dL (31-37) Red Cell Distribution Width 16.9 % (11.5-14.5) Platelet Count 142 x10^3/uL (140-400) Neutrophils (%) (Auto) 52 % (31-73) Lymphocytes (%) (Auto) 32 % (24-48) Monocytes (%) (Auto) 13 % (0-9) Eosinophils (%) (Auto) 2 % (0-3) Basophils (%) (Auto) 1 % (0-3) Neutrophils # (Auto) 2.0 x10^3uL (1.8-7.7) Lymphocytes # (Auto) 1.2 x10^3/uL (1.0-4.8) Monocytes # (Auto) 0.5 x10^3/uL (0.0-1.1) Eosinophils # (Auto) 0.1 x10^3/uL (0.0-0.7) Basophils # (Auto) 0.0 x10^3/uL (0.0-0.2) Sodium Level 139 mmol/L (136-145) Potassium Level 3.1 mmol/L (3.5-5.1) Chloride Level 101 mmol/L (98-107) Carbon Dioxide Level 31 mmol/L (21-32) Anion Gap 7 (6-14) Blood Urea Nitrogen 28 mg/dL (8-26) Creatinine 1.9 mg/dL (0.7-1.3) Estimated GFR (Cockcroft-Gault) 45.3 Glucose Level 107 mg/dL (70-99) Calcium Level 8.2 mg/dL (8.5-10.1) Magnesium Level 1.8 mg/dL (1.8-2.4) Lipase 254 U/L (73-393) Brief Hospital Course Mr. Gan is a 51 old AA male, multiple admits here in the past for either alcoholic pancreatitis, HTN, non med complaince, HE is amditted for the same, Drinks signif alcohol, pancreatitis resolved with conservative mx, Pt denies non compliance to BP meds, RX provided. CArdiac cath done bec of recurrent admissions for CP, was clean, Advised on his etoh intake. Pt seen and examined Dw and pt and cards and RN time 31 mins > 50% in counselling Discharge Information Condition at Discharge: Improved, Stable Follow Up: Weeks (PCP re bP) Disposition/Orders: D/C to Home Scheduled Amlodipine Besylate (Norvasc), 10 MG PO DAILY, (Reported) Carvedilol (Coreg), 1 TAB PO BID, (Reported) Digoxin (Digoxin), 1 TAB PO DAILY, (Reported) Furosemide (Furosemide), 1 TAB PO DAILY, (Reported) Hydralazine Hcl (Hydralazine Hcl), 3 TAB PO TID, (Reported) Isosorbide Mononitrate (Isosorbide Mononitrate), 40 MG PO DAILY, (Reported) Potassium Chloride (Potassium Chloride), 20 MEQ PO DAILY, (Reported) Simvastatin (Simvastatin), 1 TAB PO QHS, (Reported) Discontinued Medications Amlodipine Besylate (Norvasc), 1 TAB PO DAILY, (Reported) Digoxin (Digoxin), 0.125 MG PO DAILY, (Reported) Discontinued Reason: Prescription changed YA PATEL MD Apr 20, 2017 13:10
== END 2017-04-20 13:22 | disposition home or self-care (01) | DRG 286 ==
LOC: ER 20:45 → 2 NORTH 22:34
PROVIDERS: ADMIT Internal Medicine; ATTEND Internal Medicine
PROC: 4A023N7 Measurement of Cardiac Sampling and Pressure, Left Heart, Percutaneous Approach (ICD-10-PCS; principal; 2017-04-19)
PROC: B2111ZZ Fluoroscopy of Multiple Coronary Arteries using Low Osmolar Contrast (ICD-10-PCS; 2017-04-19)
PROC: B2151ZZ Fluoroscopy of Left Heart using Low Osmolar Contrast (ICD-10-PCS; 2017-04-19)
DX: I20.0 Unstable angina (principal); N17.0 Acute kidney failure with tubular necrosis; K85.20 Alcohol induced acute pancreatitis without necrosis or infection; I13.0 Hypertensive heart and chronic kidney disease with heart failure and stage 1 through stage 4 chronic kidney disease, or unspecified chronic kidney disease; I42.9 Cardiomyopathy, unspecified; E78.00 Pure hypercholesterolemia, unspecified; E78.5 Hyperlipidemia, unspecified; E83.42 Hypomagnesemia; E87.6 Hypokalemia; I50.9 Heart failure, unspecified; K21.9 Gastro-esophageal reflux disease without esophagitis; J44.9 Chronic obstructive pulmonary disease, unspecified; I73.00 Raynaud's syndrome without gangrene; F17.210 Nicotine dependence, cigarettes, uncomplicated; M19.90 Unspecified osteoarthritis, unspecified site; N18.3 Chronic kidney disease, stage 3 (moderate); M10.9 Gout, unspecified; I08.3 Combined rheumatic disorders of mitral, aortic and tricuspid valves; I27.2 Other secondary pulmonary hypertension; F10.229 Alcohol dependence with intoxication, unspecified; Z88.8 Allergy status to other drugs, medicaments and biological substances; Z91.19 Patient's noncompliance with other medical treatment and regimen; I25.2 Old myocardial infarction; Z80.9 Family history of malignant neoplasm, unspecified
CPT/HCPCS: 36415; 71010; 76700; 80048; 80053; 80061; 80076; 80307; 83036; 83690; 83735; 83880; 84443; 84484; 85027; 85520; 85610; 85730; 93005; 93306; 93458; 96365; 96366; 96375; C1769; C1892; J0360; J1644; J1650; J2001; J2250; J2270; J2405; J3010; J3480; J3490; J7030; J7060; 99285-25; G0479

== ENCOUNTER 2017-07-10 14:56 | Emergency (ER) | payer OTHER ==
[~2017-07-10] VITALS: Ht 180.3 cm; Wt 97.1 kg
[~2017-07-10 14:56] MED LIST changes: +DIGO250T PO; +HYDR100T24 PO; +POTA20TA82 PO
--- NOTE | 2017-07-10 15:11 | PHYS DOC ---
Past Medical History Past Medical History: CAD, CHF, High Cholesterol, Hypertension, [place] Additional Past Medical Histor: gout Past Surgical History: Other Additional Past Surgical Histo: "neck gland" Alcohol Use: Heavy Drug Use: None Adult General Chief Complaint Chief Complaint: KNEE SWELLING HPI HPI Patient is a 51 year old -[place] male with coronary artery disease, congestive heart failure, dyslipidemia, hypertension, previous [place], who presents with knee pain. He states been hurting for several months he's had it drained several times at .The last time he went to , they refuse to drain because he is just wanting pain meds. 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 States he has a history of gout but he does not sure it's in the left knee. He states his last tetanus shot was within the last 5 years. Review of Systems Review of Systems Constitutional: Denies fever or chills [] Eyes: Denies change in visual acuity, redness, or eye pain [] HENT: Denies nasal congestion or sore throat [] Respiratory: Denies cough or shortness of breath [] Cardiovascular: No additional information not addressed in HPI [] GI: Denies abdominal pain, nausea, vomiting, bloody stools or diarrhea [] : Denies dysuria or hematuria [] Musculoskeletal: Denies back pain or joint pain [] Integument: Denies rash or skin lesions [] Neurologic: Denies headache, focal weakness or sensory changes [] Endocrine: Denies polyuria or polydipsia [] Current Medications Current Medications Current Medications Medications (Trade) Dose Ordered Sig/[facility] Start Time Stop Time Status Last Admin Dose Admin Lidocaine/Sodium Bicarbonate (Buffered Lidocaine 1%) 20 ml 1X ONCE 07/10/17 15:30 07/10/17 15:31 DC Allergies Allergies Allergies Coded Allergies Type Severity Reaction Last Updated Verified SILVER Inhibitors Allergy Severe Anaphylaxis 04/30/16 Yes lisinopril Allergy Severe Swelling 04/29/16 Yes Physical Exam Physical Exam Constitutional: Well developed, well nourished, no acute distress, non-toxic appearance. [] HENT: Normocephalic, atraumatic, bilateral external ears normal, oropharynx moist, no oral exudates, nose normal. [] Eyes: PERRLA, EOMI, conjunctiva normal, no discharge. [] Neck: Normal range of motion, no tenderness, supple, no stridor. [] Cardiovascular:Heart rate regular rhythm, no murmur [] Lungs & Thorax: Bilateral breath sounds clear to auscultation [] Abdomen: Bowel sounds normal, soft, no tenderness, no masses, no pulsatile masses. [] Skin: Warm, dry, no erythema, no rash. [] Back: No tenderness, no CVA tenderness. [] Extremities: No tenderness, no cyanosis, no clubbing, ROM intact, no edema. [] Neurologic: Alert and oriented X 3, normal motor function, normal sensory function, no focal deficits noted. [] Psychologic: Affect normal, judgement normal, mood normal. [] Current Patient Data Vital Signs Vital Signs Date Time Temp Pulse Resp B/P (MAP) Pulse Ox O2 Delivery O2 Flow Rate FiO2 07/10/17 14:56 97.9 93 20 173/102 (125) 96 Room Air 97.9 Lab Values Laboratory Tests Test 07/10/17 17:00 White Blood Count 4.9 x10^3/uL (4.0-11.0) Red Blood Count 4.87 x10^6/uL (4.30-5.70) Hemoglobin 15.4 g/dL (13.0-17.5) Hematocrit 46.2 % (39.0-53.0) Mean Corpuscular Volume 95 fL (79-100) Mean Corpuscular Hemoglobin 32 pg (25-35) Mean Corpuscular Hemoglobin Concent 33 g/dL (31-37) Red Cell Distribution Width 16.6 % (11.5-14.5) H Platelet Count 173 x10^3/uL (140-400) Neutrophils (%) (Auto) 60 % (31-73) Lymphocytes (%) (Auto) 25 % (24-48) Monocytes (%) (Auto) 12 % (0-9) H Eosinophils (%) (Auto) 1 % (0-3) Basophils (%) (Auto) 1 % (0-3) Neutrophils # (Auto) 2.9 x10^3uL (1.8-7.7) Lymphocytes # (Auto) 1.2 x10^3/uL (1.0-4.8) Monocytes # (Auto) 0.6 x10^3/uL (0.0-1.1) Eosinophils # (Auto) 0.1 x10^3/uL (0.0-0.7) Basophils # (Auto) 0.1 x10^3/uL (0.0-0.2) Laboratory Tests 07/10/17 17:00 EKG EKG [] Radiology/Procedures Radiology/Procedures [] Impressions: Left knee pain Alcohol abuse Course & Med Decision Making Course & Med Decision Making Pertinent Labs and Imaging studies reviewed. (See chart for details) Patient's left knee was tapped. His tetanus is up-to-date according to the patient. He has been drinking but he is alert and oriented 3 in appropriate. He is able to ambulate department without any difficulty. He does not want to wait for his labs studies being discharged this time. He will need follow-up with primary care physician. Return precautions given. He is agreeable to the plan and being discharged in stable condition at this time. Dragon Disclaimer Dragon Disclaimer This electronic medical record was generated, in whole or in part, using a voice recognition dictation system. Departure Departure Impression: Primary Impression: Left knee pain Disposition: 01 HOME, SELF-CARE Condition: STABLE Referrals: UNKNOWN PCP NAME (PCP) Patient Instructions: Knee Pain, [id number] Additional Instructions: You were seen for the swelling of your knee. We removed 45 mL of fluid from it. It should feel better. We have the fluid in the lab to look for any signs of infection or signs of gout. You are wanting to catch a bus and not stay sore and discharge you and you can follow-up to primary care physician. Return ER if you have severe pain, fevers, worsening pain in her knee or other concerns. Arthrocentesis Indication: Left knee effusion Consent: Consent given by patient. Procedure: The left knee was positioned appropriately and the landmarks were identified. Local anesthesia was is of buffered lidocaine. The area was then prepped and draped in the usual sterile fashion. A needle was then introduced into the joint space 45 mL of straw-colored synovial fluid was removed. A sterile dressing was then applied to the site. The patient tolerated the procedure well. Complications: none. Problem Qualifiers Primary Impression: Left knee pain Chronicity: chronic Qualified Codes: M25.562 - Pain in left knee; G89.29 - Other chronic pain KYLEE HDZ MD Jul 10, 2017 15:11
[2017-07-10] MEDS ORDERED: LIDOCAINE 1% / SOD BICARB 8.4% 20 ML VIAL. IJ ONE (15:30)
[2017-07-10 17:04] LABS: BASO # 0.1 x10^3/uL (0.0-0.2); BASO % 1 % (0-3); EOS % 1 % (0-3); HEMATOCRIT 46.2 % (39.0-53.0); HEMOGLOBIN 15.4 g/dL (13.0-17.5); LYMPH # 1.2 x10^3/uL (1.0-4.8); LYMPH % 25 % (24-48); MEAN CORPUSCULAR HEMOGLOBIN 32 pg (25-35); MEAN CORPUSCULAR HGB CONC 33 g/dL (31-37); MEAN CORPUSCULAR VOLUME 95 fL (79-100); MONO % 12 % (0-9); NEUT % 60 % (31-73); PLATELET COUNT 173 x10^3/uL (140-400); RED BLOOD COUNT 4.87 x10^6/uL (4.30-5.70); RED CELL DISTRIBUTION WIDTH 16.6 % (11.5-14.5); WHITE BLOOD COUNT 4.9 x10^3/uL (4.0-11.0)
[2017-07-10 17:16] VITALS: BP 189/118
[2017-07-10 17:22] LABS: CALCIUM 8.9 mg/dL (8.5-10.1); CREATININE 1.5 mg/dL (0.7-1.3); GFR 59.5; POTASSIUM 3.1 mmol/L (3.5-5.1)
[2017-07-10 17:28] LABS: ALBUMIN 3.4 g/dL (3.4-5.0); ALBUMIN/GLOBULIN RATIO 0.8 (1.0-1.7); TOTAL BILIRUBIN 0.5 mg/dL (0.2-1.0); TOTAL PROTEIN 7.7 g/dL (6.4-8.2)
[2017-07-10 18:24] LABS: BILIRUBIN,URINE NEGATIVE (NEG); GLUCOSE,URINE NEGATIVE (NEG); NITRITE,URINE NEGATIVE (NEG); PROTEIN,URINE 100 mg/dL (NEG-TRACE); UROBILINOGEN,URINE 0.2 mg/dL (0.2 mg/dL)
[2017-07-10 18:33] LABS: BACTERIA,URINE 0 /HPF (0-FEW); RBC,URINE OCC /HPF (0-2); SQUAMOUS EPITHELIAL CELL,UR OCC /LPF; WBC,URINE OCC /HPF (0-4)
== END 2017-07-10 17:30 | disposition home or self-care (01) ==
LOC: ER 14:56
DX: M25.562 Pain in left knee (principal); G89.29 Other chronic pain; I25.10 Atherosclerotic heart disease of native coronary artery without angina pectoris; I11.0 Hypertensive heart disease with heart failure; I50.9 Heart failure, unspecified; E78.00 Pure hypercholesterolemia, unspecified; I25.2 Old myocardial infarction; M10.9 Gout, unspecified; Z88.8 Allergy status to other drugs, medicaments and biological substances
CPT/HCPCS: 20610; 36415; 80053; 81001; 83880; 85025; 87071; 87075; 87205; 89060; 99284; G0480